=== PATIENT | male | born 1930 ===

== ENCOUNTER 2017-01-10 10:27 | Inpatient (IN) | payer MEDICARE ==
--- NOTE | 2017-01-10 10:37 | ED PDOC ---
Arrival/HPI - General Chief Complaint: Altered Mental Status Time Seen by Provider: 01/10/17 10:29 Historian: EMS EM Caveat: Dementia - History of Present Illness Narrative History of Present Illness (Text): 01/10/17 10:35 An 86 year old male whose past medical history includes, diabetes, hypertension , emphysema, and is a [facility] resident, presents to the emergency department brought in via EMS from [facility] for lethargy and fever. As per EMS the patient has a DNR order. Review of systems unavailable due to dementia. Time/Duration: Prior to Arrival Symptom Onset: Sudden Symptom Course: Unchanged Activities at Onset: Rest, Light Context: Other (Long Term) Past Medical History - Provider Review Nursing Documentation Reviewed: Yes - Infectious Disease Hx of Infectious Diseases: None - Tetanus Immunization Tetanus Immunization: Unknown - Cardiac Hx Cardiac Disorders: Yes Hx Hypertension: Yes - Pulmonary Hx Respiratory Disorders: Yes (USED TO SMOKE 3 PPD QUIT) Other/Comment: SOB - Neurological Hx Neurological Disorder: No - HEENT Hx HEENT Disorder: Yes Other/Comment: POOR VISION - Renal Hx Renal Disorder: No - Endocrine/Metabolic Hx Diabetes Mellitus Type 2: Yes (uncontrolled) - Hematological/Oncological Hx Blood Disorders: No - Integumentary Hx Dermatological Disorder: Yes Hx Psoriasis: Yes (EXTENSIVE-WHOLE BODY,LE AND UPPER EXT. SOME TO FOREHEAD.) - Musculoskeletal/Rheumatological Hx Musculoskeletal Disorders: Yes Hx Falls: Yes - Gastrointestinal Hx Gastrointestinal Disorders: No - Genitourinary/Gynecological Hx Genitourinary Disorders: Yes (URGENCY) Hx Incontinence: Yes - Psychiatric Hx Psychophysiologic Disorder: No Hx Substance Use: No Family/Social History - Physician Review Nursing Documentation Reviewed: Yes Family/Social History: No Known Family HX Smoking Status: Former Smoker Hx Alcohol Use: Yes (QUIT. USED TO DRINK 15 BEERS /WEEKEND QUIT) Hx Substance Use: No Allergies/Home Meds Allergies/Adverse Reactions: Allergies No Known Allergies Allergy (Verified 04/21/16 15:15) Home Medications: Home Meds Medication Instructions Recorded Confirmed Donepezil [Aricept] 10 mg PO HS 04/21/16 01/10/17 Acetaminophen [Pain Reliever] 650 mg PO Q4H PRN 01/10/17 01/10/17 Acetaminophen [Tylenol 325mg tab] 650 mg PO Q4H PRN 01/10/17 01/10/17 Albuterol Sulfate [Proair Hfa] 2 puff IH Q8H PRN 01/10/17 01/10/17 Albuterol/Ipratropium [Duoneb 3 3 ml IH Q6H PRN 01/10/17 01/10/17 MG/3 Ml-0.5 MG/3 Ml 3 Ml] Bisacodyl [Fast Relief Laxative] 10 mg RC PRN PRN 01/10/17 01/10/17 Cetirizine HCl [Zyrtec Allergy] 10 mg PO DAILY 01/10/17 01/10/17 Docusate Sodium [Baig' Stool 200 mg PO DAILY 01/10/17 01/10/17 Softener Laxative] Famotidine [Pepcid] 40 mg PO HS 01/10/17 01/10/17 Fluticasone/Vilanterol [Breo 1 puff IH DAILY 01/10/17 01/10/17 Ellipta 200-25 Mcg INH] Insulin Human Regular [Novolin R] 0 unit SC BID 01/10/17 01/10/17 Magnesium Hydroxide [Milk Of 30 ml PO DAILY PRN 01/10/17 01/10/17 Magnesia] Montelukast [Singulair] 10 mg PO DAILY 01/10/17 01/10/17 Thiamine Mononitrate [Optimum 100 mg PO DAILY 01/10/17 01/10/17 Vitamin B-1] acetaZOLAMIDE [Diamox] 250 mg PO BID 01/10/17 01/10/17 Physical Exam - Physical Exam Narrative Physical Exam (Text): 01/10/17 10:47 - Review of Systems limited due to dementia. Constitutional: (+) Fevers. absent: Fatigue, Weight Change Neurological: (+) Lethargic. absent: Focal Weakness - Physical exam Patient appears age appropriate. - Systems Exam Head: Present: Atraumatic, Normocephalic Pupils: Present: PERRL Extraocular Muscles: Present: EOMI Conjunctiva: Present: Normal Mouth: Present: Dry Mucous Membranes Neck: Present: Normal Range of Motion. No: MIDLINE TENDERNESS, Paraspinal Tenderness Respiratory/Chest: Present: Clear to Auscultation, Good Air Exchange. mild Respiratory Distress No: Accessory Muscle Use, Tachypnic Cardiovascular: Present: Tachycardic, Normal S1, S2, Peripheral Pulses Present. No: Murmurs Abdomen: Present: Normal Bowel Sounds, No: Tenderness, Peritoneal Signs, Rebound, Guarding, Distention Back: Present: Normal Inspection. No: Midline Tenderness, Paraspinal Tenderness Upper Extremity: Present: Normal Inspection. No: Cyanosis, Edema Lower Extremity: Present: erythematous rash, LLE Neurological: Present: Lethargic, responsive to verb and tactile stimuli. No focal neurological deficits. Lymphatic: Present: NI, NC Physical Exam Limitations: Other (Dementia) Vital Signs Reviewed: Yes Vital Signs Temp Pulse Resp BP Pulse Ox 01/10/17 12:51 98.9 F 114 H 22 135/92 H 99 01/10/17 12:14 98.5 F 01/10/17 11:28 121 H 18 135/81 99 01/10/17 10:38 100.4 F H 120 H 18 137/83 97 Temperature: Febrile Blood Pressure: Normal Pulse: Tachycardic Respiratory Rate: Normal Appearance: Positive for: Ill-Appearing Medical Decision Making ED Course and Treatment: 01/10/17 11:01 Impression: An 86 year old male brought in via EMS from [facility] for lethargy and fever. On exam, lethargic, dry mucous membranes, no focal neurological deficits , tachycardic, clear to auscultation, and responsive to verb and tactile stimuli. LE with erythema and cellulitic changes Differential Diagnosis included but are not limited to: Sepsis vs. UTI vs. PNA vs. cellulitis Plan: -- EKG -- Chest X-ray -- Labs -- Urine ad Blood Culture -- Urinalysis -- Tylenol, IV Fluids, Vancomycin, zosyn -- Reassess and disposition Prior Visits: Notes and results from previous visits were reviewed. Patient was last seen in the emergency department 04/2016 for lower extremity edema and shortness of breath. Patient was admitted for lower extremity edema, shortness of breath, cellulitis. Progress Notes: 01/10/17 10:40: Patient seen by Dr. Abdul in emergency department agrees with plan. 01/10/17 11:28 EKG: Ordered, reviewed, and independently interpreted the EKG. Rate : 115 BPM Rhythm :Atrial fibrillation Interpretation : No ST-segment elevations, normal axis, normal intervals. Interpreted by me. 01/10/17 12:26 Chest X-ray Report Date : 01/10/2017 11:55:26 Dictator : Nilesh Ivey MD IMPRESSION: No active disease. 01/10/17 13:19 Dictator : Nilesh Ivey MD Report Date : 01/10/2017 13:16:04 CT Abdomen and Pelvis without intravenous contrast IMPRESSION: No acute findings 01/10/17 14:[address] Castro, asked to admit to the MICU dw Dr. Mullins, [facility] will evaluate pt's [place] records have a POLST. [facility] pt would like to a natural . DNR. 01/10/17 15:02 accepted to the MICU by Dr. Mullins - Lab Interpretations Lab Results: 01/10/17 10:45 01/10/17 10:45 Lab Results 01/10/17 13:53: pO2 149 H, VBG pH 7.20 L, VBG pCO2 29.0 L, VBG HCO3 11.3 L, VBG Total CO2 12.2 L, VBG O2 Sat (Calc) 100.6 H, VBG Base Excess -15.3 L, VBG Potassium 4.0, Sodium 156.0 H, Chloride 110.0 H, Glucose 239 H, Lactate 4.1 H*, FiO2 21.0, Venous Blood Potassium 4.0 01/10/17 11:00: Urine Color Yellow, Urine Appearance Cloudy, Urine pH 8.0, Ur Specific Means 1.020, Urine Protein 100 H, Urine Glucose (UA) Negative, Urine Ketones Negative, Urine Blood Large H, Urine Nitrate Negative, Urine Bilirubin Negative, Urine Urobilinogen 0.2, Ur Leukocyte Esterase Large H, Urine RBC 0 - 2 , Urine WBC 1 - 3, Urine Bacteria Many 01/10/17 10:45: Sodium 147, Chloride 114 H, Potassium 3.2 L, Carbon Dioxide 13 L , Anion Gap 23 H, BUN 30 H, Creatinine 2.1 H, Est GFR ( Amer) 37, Est GFR (Non-Af Amer) 30, Random Glucose 253 H, Calcium 9.6, Phosphorus 2.4 L, Magnesium 1.9, Total Bilirubin 1.0, AST 60 H, ALT 21, Alkaline Phosphatase 101, Troponin I 0.06, NT-Pro-B Natriuret Pep 3760 H, Total Protein 7.7, Albumin 4.1, Globulin 3.7, Albumin/Globulin Ratio 1.1 01/10/17 10:45: pO2 152 H, VBG pH 7.20 L, VBG pCO2 28.0 L, VBG HCO3 10.9 L, VBG Total CO2 11.8 L, VBG O2 Sat (Calc) 100.3 H, VBG Base Excess -15.6 L, VBG Potassium 3.9, Sodium 159.0 H, Chloride 101.0, Glucose 268 H, Lactate 6.4 H*, FiO2 21.0, Venous Blood Potassium 3.9 01/10/17 10:45: PT 13.1 H, INR 1.21 H, APTT 35.7 H 01/10/17 10:45: WBC 53.5 H* D, RBC 5.01, Hgb 15.4, Hct 45.7, MCV 91.2, MCH 30.7 , MCHC 33.7, RDW 14.2, Plt Count 145, MPV 11.9 H, Neutrophils % (Manual) 92 H, Band Neutrophils % 5 H, Lymphocytes % (Manual) 0 L, Monocytes % (Manual) 0 L, Metamyelocytes % 3, Platelet Evaluation Normal I have reviewed the lab results: Yes - RAD Interpretation Radiology Orders: 01/10/17 10:41 CHEST PORTABLE [RAD] Stat 01/10/17 12:12 ABD & PELVIS W/O PO OR IV CONT [CT] Stat - EKG Interpretation Interpreted by ED Physician: Yes Type: 12 lead EKG - Medication Orders Current Medication Orders: Acetaminophen (Tylenol 325 Mg Supp) 975 mg VT ONCE PRN PRN Reason: Fever >100.4 F Last Admin: 01/10/17 11:14 Dose: 975 mg Re-Assess: [place] Pain/Vitals Document 01/10/17 12:14 EWO (Rec: 01/10/17 14:51 EWO [id number]) Vitals Temperature (97.6 F-99.6 F) 98.5 F Temperature Source Rectal Potassium Chloride (Potassium Chloride 20 Meq/100 Ml) 20 meq in 100 mls @ 50 mls/hr IVPB Q2H JARROD Stop: 01/10/17 16:14 Last Admin: 01/10/17 14:55 Dose: 50 mls/hr Metronidazole (Flagyl) 500 mg in 100 mls @ 100 mls/hr IVPB STAT STA PRN Reason: Protocol Stop: 01/10/17 15:19 Last Admin: 01/10/17 15:02 Dose: 100 mls/hr Discontinued Medications Aspirin (Aspirin Supp) 300 mg RC STAT STA Stop: 01/10/17 12:07 Last Admin: 01/10/17 12:39 Dose: 300 mg Re-Assess: [place] Pain/Vitals Document 01/10/17 13:39 BESSY (Rec: 01/10/17 14:58 BESSY [id number]) Pain Reassessment Is This A Pain ReAssessment? No Sodium Chloride 2,500 ml/ IV (SUPPLIES) 2,500 mls @ 4,898.82 mls/hr IV ONCE ONE PRN Reason: 60 ML/KG/HR Stop: 01/10/17 10:42 Last Admin: 01/10/17 11:15 Dose: 4,898.82 mls/hr Vancomycin HCl (Vancomycin 1gm) 1 gm in 250 mls @ 167 mls/hr IVPB STAT STA PRN Reason: Protocol Stop: 01/10/17 12:10 Last Admin: 01/10/17 11:45 Dose: 167 mls/hr Piperacillin Sod/Tazobactam Sod (Zosyn 4.5 Gm In Ns 100ml) 4.5 gm in 100 mls @ 200 mls/hr IVPB STAT STA PRN Reason: Protocol Stop: 01/10/17 11:10 Last Admin: 01/10/17 11:14 Dose: 200 mls/hr - Scribe Statement The provider has reviewed the documentation as recorded by the Tiibbrandi Davis Provider Scribe Attestation: All medical record entries made by the Scribe were at my direction and personally dictated by me. I have reviewed the chart and agree that the record accurately reflects my personal performance of the history, physical exam, medical decision making, and the department course for this patient. I have also personally directed, reviewed, and agree with the discharge instructions and disposition. Disposition/Present on Arrival - Present on Arrival Any Indicators Present on Arrival: No History of DVT/PE: No History of Uncontrolled Diabetes: Yes Urinary Catheter: No History of Decub. Ulcer: No History Surgical Site Infection Following: None - Disposition Have Diagnosis and Disposition been Completed?: Yes Diagnosis: Sepsis Disposition: HOSPITALIZED Disposition Time: 15:04 Patient Plan: Admission Patient Problems: Current Active Problems Problem Status Onset Sepsis Acute Condition: FAIR Discharge Instructions (ExitCare): Sepsis (ED) Forms: Criptext (Syriac)
[2017-01-10] MEDS ORDERED: Vancomycin 1gm in NS 250ml 1 GM/250 ML BAG IVPB STA (10:41)
[2017-01-10] MEDS ORDERED: Piperacill/Tazo 4.5gm in NS 4.5 GM/100 ML BAG IVPB STA (10:41)
[2017-01-10 11:08] LABS: VENOUS BLOOD GAS BASE EXCESS -15.6 mmol/L (0.0-2.0); VENOUS BLOOD GAS PO2 152 mm/Hg (30-55)
[2017-01-10 11:10] LABS: HEMOGLOBIN 15.4 gm/dL (14.0-18.0); MEAN CELL VOLUME 91.2 fL (80.0-105.0); MEAN CORPUSCULAR HEMOGLOBIN 30.7 pg (25.0-35.0); MEAN CORPUSCULAR HGB CONC 33.7 g/dl (31.0-37.0); MEAN PLATELET VOLUME 11.9 fl (7.0-11.0); PLATELET COUNT 145 10^3/uL (120.0-450.0); RBC 5.01 10^6/uL (3.5-6.1); RED CELL DISTRIBUTION WIDTH 14.2 % (11.5-14.5)
[2017-01-10 11:16] LABS: URINE APPEARANCE CLOUDY (CLEAR); URINE BILIRUBIN NEGATIVE (NEGATIVE); URINE BLOOD LARGE (NEGATIVE); URINE COLOR YELLOW (YELLOW); URINE GLUCOSE (UA) NEGATIVE (NEGATIVE); URINE LEUKOCYTE ESTERASE LARGE Leu/uL (NEGATIVE); URINE NITRATE NEGATIVE (NEGATIVE); URINE PROTEIN 100 mg/dL (<30 mg/dL); URINE UROBILINOGEN 0.2 E.U./dL (<1 E.U./dL)
[2017-01-10 11:16] LABS: WHITE BLOOD COUNT 53.5 10^3/ul (4.5-11.0)
[2017-01-10 11:17] LABS: INR 1.21 (0.93-1.08); PARTIAL THROMBOPLASTIN TIME 35.7 Seconds (23.7-30.8); PROTHROMBIN TIME 13.1 Seconds (9.9-11.8)
--- NOTE | 2017-01-10 11:31 | PCM.SEPTIC ---
Sepsis Progress Note - Reassessment Type Date of Evaluation: 01/10/17 Time of Evaluation: 11:31 Reassessment Type: Non-invasive reassessment - Non Invasive Reassessment Were the most recent vital sign reviewed: Yes Vital Sign (Latest): Temp Pulse Resp BP Pulse Ox 100.4 F H 120 H 18 137/83 97 01/10/17 10:38 01/10/17 10:38 01/10/17 10:38 01/10/17 10:38 01/10/17 10:38 Cardiovascular: Yes: Tachycardia. No: Murmur Respiratory: Yes: Normal Breath Sounds, Accessory Muscle Use, Respiratory Distress. No: Wheezing Capillary Refill: Normal (Less than 2 sec) Pulses: Normal Radial, Normal Dorsalis Pedis, Decreased Posterior Tibialis Skin: Warm, Diaphoretic, Rash (anterior chest ), Other (dry red plaque formation lower legs)
[2017-01-10 11:39] LABS: URINE BACTERIA MANY (NEG); URINE RBC 0 - 2 /hpf (0-2)
[2017-01-10 11:43] LABS: BAND 5 % (0-2); METAMYELOCYTE 3 %; NEUTROPHIL 92 % (50.0-70.0); PLATELET ESTIMATE NORMAL (NORMAL)
[2017-01-10 11:44] LABS: ALB/GLOB RATIO 1.1 (1.1-1.8); ALBUMIN 4.1 g/dL (3.0-4.8); CALCIUM 9.6 mg/dL (8.4-10.5); LYMPHOCYTE 0 % (22.0-35.0); MAGNESIUM 1.9 mg/dL (1.7-2.2); MONOCYTE 0 % (1.0-6.0)
[2017-01-10 11:45] LABS: TROPONIN I 0.06 ng/mL
--- NOTE | 2017-01-10 11:57 | RAD ---
HISTORY: Sepsis Patient COMPARISON: 04/21/2016 FINDINGS: LUNGS: No active pulmonary disease. PLEURA: No significant pleural effusion identified, no pneumothorax apparent. CARDIOVASCULAR: Normal. OSSEOUS STRUCTURES: No significant abnormalities. VISUALIZED UPPER ABDOMEN: Normal. OTHER FINDINGS: None. IMPRESSION: No active disease.
--- NOTE | 2017-01-10 13:17 | CT ---
PROCEDURE: CT Abdomen and Pelvis without intravenous contrast HISTORY: SEPSIS COMPARISON: None. TECHNIQUE: Without contrast.. Contrast Dose: Radiation dose: Total exam DLP = 854 mGy-cm. This CT exam was performed using one or more of the following dose reduction techniques: Automated exposure control, adjustment of the mA and/or kV according to patient size, and/or use of iterative reconstruction technique. FINDINGS: LOWER THORAX: There is a pleural calcification on the left diaphragmatic surface. LIVER: Unremarkable. No gross lesion or ductal dilatation. GALLBLADDER AND BILE DUCTS: There is a single small stone in the gallbladder. There is no inflammation PANCREAS: Unremarkable. No gross lesion or ductal dilatation. SPLEEN: Unremarkable. ADRENALS: Unremarkable. No mass. KIDNEYS AND URETERS: Unremarkable. No hydronephrosis. No solid mass. VASCULATURE: Unremarkable. No aortic aneurysm. BOWEL: Unremarkable. No obstruction. No gross mural thickening. There is a moderate amount of stool in the rectum APPENDIX: Unremarkable. Normal appendix. PERITONEUM: Unremarkable. No free fluid. No free air. LYMPH NODES: Unremarkable. No enlarged lymph nodes. BLADDER: The bladder is decompressed around a Looney catheter. REPRODUCTIVE: Unremarkable. BONES: Multilevel disc degeneration. There is a compression deformity of the inferior endplate of L1. This is probably chronic OTHER FINDINGS: None. IMPRESSION: No acute findings
[2017-01-10 13:58] LABS: VENOUS BLOOD GAS BASE EXCESS -15.3 mmol/L (0.0-2.0); VENOUS BLOOD GAS PO2 149 mm/Hg (30-55)
[2017-01-10] MEDS ORDERED: metroNIDAZOLE IV 500 mg/100 ml 500 MG/100 ML BAG IVPB STA (14:20)
[2017-01-10] MEDS ORDERED: Vancomycin 1gm in NS 250ml 1 GM/250 ML BAG IVPB SCH (16:45)
[2017-01-10] MEDS: Sodium Chloride 0.9% 1,000 ML IV SCH (17:25)
[2017-01-10] MEDS ORDERED: Piperacill/Tazo 4.5gm in NS 4.5 GM/100 ML BAG IVPB SCH (18:00)
[2017-01-10] MEDS ORDERED: Piperacillin/Tazobact 3.375 gm 100 ML IVPB SCH (18:00)
[2017-01-10] MEDS ORDERED: Sodium Chloride 0.9% 2,000 ML IV STA (18:06)
[2017-01-10 18:58] VITALS: BMI 29.9
[2017-01-10] MEDS ORDERED: Pneumococcal 23-Valent Vaccine IM ONE (18:58)
[2017-01-10 19:03] LABS: MEAN CELL VOLUME 92.2 fL (80.0-105.0); MEAN CORPUSCULAR HEMOGLOBIN 30.8 pg (25.0-35.0); MEAN CORPUSCULAR HGB CONC 33.4 g/dl (31.0-37.0); MEAN PLATELET VOLUME 10.8 fl (7.0-11.0); RBC 4.87 10^6/uL (3.5-6.1); RED CELL DISTRIBUTION WIDTH 14.5 % (11.5-14.5)
[2017-01-10 19:05] LABS: WHITE BLOOD COUNT 38.5 10^3/ul (4.5-11.0)
--- NOTE | 2017-01-10 19:15 | CP.PCM.CON ---
Addendum entered and electronically signed by ARNULFO MOREIRA DO 01/10/17 21:13 : Patient's chart includes POLST stating DNR status, signed by power of trust and estates attorney, Grace Albright, but did not include any notation as to intubation and ventilation status, and was not signed by a physician. The advanced directive where she is listed as POA is also found in the chart. I called and spoke to her personally, to verify the resuscitation status, and she verbalized they do not desire any heroic life saving measures, including, but not limited to, chest compressions, intubations, invasive procedures, or large invasive IV access lines. Original Note: <ARNULFO MOREIRA - Last Filed: 01/10/17 19:03> History of Present Illness - History of Present Illness History of Present Illness: Arnulfo Moreira DO PGY1 - ICU Consult Note Patient is an 86 yo M seen and evaluated at bedside in the ER with a PMH of psoriasis, DM, HTN, emphysema, and dementia. He was brought to the ER by EMS from his intermediate for fever and lethargy. He appears lethargic and confused. ROS is limited by his mental status. Review of Systems - Review of Systems Systems not reviewed;Unavailable: Altered Mental Status Past Patient History - Infectious Disease Hx of Infectious Diseases: None - Tetanus Immunizations Tetanus Immunization: Unknown - Past Social History Smoking Status: Former Smoker - CARDIAC Hx Cardiac Disorders: Yes Hx Hypertension: Yes - PULMONARY Hx Respiratory Disorders: Yes (USED TO SMOKE 3 PPD QUIT) Other/Comment: SOB - NEUROLOGICAL Hx Neurological Disorder: Yes Hx Dementia: Yes (MILD) - HEENT Hx HEENT Problems: Yes ([place]) Other/Comment: POOR VISION - RENAL Hx Chronic Kidney Disease: No - ENDOCRINE/METABOLIC Hx Diabetes Mellitus Type 2: Yes (uncontrolled) - HEMATOLOGICAL/ONCOLOGICAL Hx Blood Disorders: No - INTEGUMENTARY Hx Dermatological Problems: Yes Hx Psoriasis: Yes (EXTENSIVE-WHOLE BODY,LE AND UPPER EXT. SOME TO FOREHEAD.) - MUSCULOSKELETAL/RHEUMATOLOGICAL Hx Musculoskeletal Disorders: Yes Hx Falls: Yes Hx Unsteady Gait: Yes (WALKER,AMBULATES WITH ASSIST) - GASTROINTESTINAL Hx Gastrointestinal Disorders: No - GENITOURINARY/GYNECOLOGICAL Hx Genitourinary Disorders: Yes (URGENCY) Hx Incontinence: Yes - PSYCHIATRIC Hx Psychophysiologic Disorder: No Hx Substance Use: No - SURGICAL HISTORY Hx Surgeries: No Meds Allergies/Adverse Reactions: Allergies Allergy/AdvReac Type Severity Reaction Status Date / Time No Known Allergies Allergy Verified 01/10/17 16:34 - Medications Medications: Current Medications Acetaminophen (Tylenol 325 Mg Supp) 975 mg KS ONCE PRN PRN Reason: Fever >100.4 F Stop: 01/10/17 23:59 Last Admin: 01/10/17 11:14 Dose: 975 mg Acetaminophen (Tylenol 325mg Tab) 650 mg PO Q4 PRN PRN Reason: Fever >100.4 F Albuterol/Ipratropium (Duoneb 3 Mg/0.5 Mg (3 Ml) Ud) 3 ml IH [id number] JARROD Metronidazole (Flagyl) 500 mg in 100 mls @ 100 mls/hr IVPB Q8 JARROD PRN Reason: Protocol Sodium Chloride (Sodium Chloride 0.9%) 1,000 mls @ 100 mls/hr IV .Q10H [facility] Last Admin: 01/10/17 17:25 Dose: 100 mls/hr Vancomycin HCl (Vancomycin 1gm) 1 gm in 250 mls @ 167 mls/hr IVPB Q12H JARROD PRN Reason: Protocol Last Admin: 01/10/17 17:25 Dose: 167 mls/hr Piperacillin Sod/Tazobactam Sod (Zosyn 3.375 In Ns 100ml) 100 mls @ 200 mls/hr IVPB Q6 JARROD Stop: 01/11/17 00:30 Last Admin: 01/10/17 17:24 Dose: 200 mls/hr Sodium Chloride (Sodium Chloride 0.9%) 2,000 mls @ 999 mls/hr IV .Q2H1M STA Stop: 01/10/17 20:06 Insulin Human Regular (Humulin R Med) 0 units SC ACHS JARROD PRN Reason: Protocol Pneumococcal Polyvalent Vaccine (Pneumovax 23 Vaccine) 0.5 ml IM .ONCE ONE Stop: 01/10/17 18:59 Physical Exam - Constitutional Appears: Toxic, No Acute Distress, Confused, Chronically Ill - Head Exam Head Exam: ATRAUMATIC, NORMOCEPHALIC - Eye Exam Eye Exam: EOMI, Normal appearance - ENT Exam Additional comments: Oropharynx erythematous - Neck Exam Neck exam: Negative for: Lymphadenopathy, Meningismus - Respiratory Exam Respiratory Exam: Rhonchi Additional comments: tachypnic - Cardiovascular Exam Cardiovascular Exam: Irregular Rhythm, +S1, +S2 - GI/Abdominal Exam GI & Abdominal Exam: Normal Bowel Sounds, Soft. absent: Tenderness - Extremities Exam Extremities exam: Positive for: normal inspection. Negative for: calf tenderness, pedal edema - Back Exam Back exam: absent: CVA tenderness (L), CVA tenderness (R) - Neurological Exam Additional comments: Lethargic, unable to assess orientation - Skin Additional comments: Multiple psoriatic plaques diffusely on chest, neck, b/l UE, b/l LE Left leg with large erythematous indurated plaque on left thigh and buttock, with 2cm bulla with no purulence or bleeding. Tender Results - Vital Signs Recent Vital Signs: Last Vital Signs Temp 99 F 01/10/17 18:24 Pulse 120 H 01/10/17 18:24 Resp 18 01/10/17 18:24 BP 137/73 01/10/17 18:24 Pulse Ox 99 01/10/17 14:00 - Labs Result Diagrams: 01/10/17 10:45 01/10/17 10:45 Assessment & Plan - Assessment and Plan (Free Text) Assessment: 86 yo cook islander speaking M with PMH of Dm, HTN, emphysema, psoriasis, and dementia , admitted to ICU for severe sepsis 2/2 UTI vs cellulitis vs colitis. Neuro: - Patient was lethargic and barely responsive on initial exam, after receiving 2.5L fluid bolus and initial doses of antibiotics, he is much more awake and alert, responding appropriately to questions and moving all extremities normally - Continue to monitor mental status with continuing treatment Cardio: - EKG shows NSR, borderline tachycardia - H/o HTN, HLD, holding home antihypertensives due to state of sepsis - Received 2.5L fluid bolus in ER, currently on NS@100 - Normotensive - PRN hydralazine for SBP>180, DBP>110 - Maintain mean BP>60 Pulm: - Patient wheezing on exam, with history of emphysema - Duoneb Q6 - Maintain O2% >90% - Consulted pulm (Dr. Michelle) GI: - Tolerating PO, will monitor blood glucose and adjust diet - Renal diet - Ppx: Protonix Renal: - Creatinine elevated, but likely 2/2 hydration status, start IVF and recheck in AM - Strict I & O - Looney catheter in place ID: - Sepsis 2/2 UTI vs Cellulitis vs Colitis - Afebrile. WBC on admission 55,000. Improved to 38,500 on repeat CBC after fluids and abx - Received one dose of Zosyn and Vanco in ED - Urinalysis shows likely UTI - Physical exam shows likely cellulitis - CT abd/pelv read as "no acute findings" but shows some mildy dilated loops of bowel, possibly 2/2 early colitis - Pending BCx, UCx, stool for C. diff - Start Zosyn, Vanco, and Flagyl - Consulted ID (Tez) Endo: - H/o DM, holding oral hypoglycemics - Patient is acidotic with an anion gap, but more likely due to sepsis than DKA. No ketonuria or glucosuria. - Q4 accuchecks - Sliding Scale Insulin MED - Maintain euglycemia Ppx- protonix and SCD Patient see and discussed with attending <Harpreet ST,Elsisa Dunalp - Last Filed: 01/11/17 07:42> Meds - Medications Medications: Current Medications Acetaminophen (Tylenol 325mg Tab) 650 mg PO Q4 PRN PRN Reason: Fever >100.4 F Albuterol/Ipratropium (Duoneb 3 Mg/0.5 Mg (3 Ml) Ud) 3 ml IH [id number] [facility] Last Admin: 01/11/17 07:15 Dose: Not Given Hydralazine HCl (Apresoline) 10 mg IVP Q6 PRN PRN Reason: SBP>180, DBP>110 Metronidazole (Flagyl) 500 mg in 100 mls @ 100 mls/hr IVPB Q8 JARROD PRN Reason: Protocol Last Admin: 01/11/17 06:20 Dose: 100 mls/hr Meropenem 1g/NS 100mL IVPB (Meropenem 1g/Ns 100ml Ivpb) 1 gm in 100 mls @ 100 mls/hr IVPB Q12 JARROD PRN Reason: Protocol Stop: 01/17/17 22:31 Last Admin: 01/10/17 23:00 Dose: 100 mls/hr Sodium Chloride (Sodium Chloride 0.45%) 1,000 mls @ 100 mls/hr IV .Q10H [facility] Insulin Human Regular (Humulin R Med) 0 units SC ACHS JARROD PRN Reason: Protocol Last Admin: 01/10/17 22:09 Dose: Not Given Pantoprazole Sodium (Protonix Inj) 40 mg IVP Q12 JARROD Last Admin: 01/10/17 22:08 Dose: 40 mg Results - Vital Signs Recent Vital Signs: Last Vital Signs Temp 98.2 F 01/11/17 04:10 Pulse 93 H 01/11/17 06:30 Resp 20 01/11/17 06:30 BP 159/109 H 01/11/17 06:00 Pulse Ox 96 01/11/17 06:30 - Labs Result Diagrams: 01/11/17 05:15 01/11/17 05:15 Labs: Laboratory Results - last 24 hr 01/10/17 01/10/17 01/10/17 19:00 19:00 22:07 WBC 38.5 H* D RBC 4.87 Hgb 15.0 Hct 44.9 MCV 92.2 MCH 30.8 MCHC 33.4 RDW 14.5 Plt Count 112 L MPV 10.8 Gran % Lymph % (Auto) [place] % (Auto) Eos % (Auto) Baso % (Auto) Gran # Lymph # [place] # Eos # Baso # Neutrophils % (Manual) Band Neutrophils % Lymphocytes % (Manual) Monocytes % (Manual) Metamyelocytes % Giant Platelets Sodium Potassium Chloride Carbon Dioxide Anion Gap BUN Creatinine Est GFR ( Amer) Est GFR (Non-Af Amer) POC Glucose (mg/dL) 197 H Random Glucose Lactic Acid 2.9 H Calcium 01/11/17 01/11/17 01/11/17 05:15 05:15 05:15 WBC 27.8 H* D RBC 4.72 Hgb 14.4 Hct 43.1 MCV 91.3 MCH 30.5 MCHC 33.4 RDW 14.7 H Plt Count 102 L MPV 11.5 H Gran % [employer] Investigator Lymph % (Auto) [employer] Investigator [place] % (Auto) [employer]age [employer] Investigator Eos % (Auto) [employer] Investigator Baso % (Auto) [employer] Investigator Gran # [employer] Investigator Lymph # [employer] Investigator [place] # [employer] Investigator Eos # [employer] Investigator Baso # [employer] Investigator Neutrophils % (Manual) 87 H Band Neutrophils % 7 H Lymphocytes % (Manual) 2 L Monocytes % (Manual) 2 Metamyelocytes % 2 Giant Platelets Present Sodium 150 H Potassium 4.0 Chloride 121 H Carbon Dioxide 19 L Anion Gap 14 BUN 31 H Creatinine 1.5 H Est GFR ( Amer) 54 Est GFR (Non-Af Amer) 44 POC Glucose (mg/dL) Random Glucose 120 H Lactic Acid 1.6 Calcium 8.8 Attending/Attestation - Attestation I have personally seen and examined this patient.: Yes I have fully participated in the care of the patient.: Yes I have reviewed all pertinent clinical information: Yes Notes (Text): 01/11/17 07:40 86 y/o M w/ SEPSIS and AMS Dementia at baseline but noted to be lethargic and uncomfortable. Elevated WBC 55K without identifiable source. [place] cx sent , IV Fluids x [address] abd pelvis to be done to check for Colitis ( c. DIff) Urine analysis positive, pending cx results. Broad spectrum abx given and empiric treatment for C . Diff. Will watch overnight. DNR/DNI no heroic measures. dvt P cc time 55 min
[2017-01-10] MEDS: Albuterol-Ipratrop 3 mg / 0.5 (3 ml) UD IH SCH (20:00)
[2017-01-10] MEDS: Albuterol-Ipratrop 3 mg / 0.5 (3 ml) UD IH STA (20:02)
[2017-01-10] MEDS: metroNIDAZOLE IV 500 mg/100 ml 500 MG/100 ML BAG IVPB SCH (21:55)
[2017-01-10] MEDS: Insulin Reg-MEDIUM-Coverage SC SCH (22:09)
[2017-01-10] MEDS: Meropenem 1g/NS 100mL IVPB 1 GM/100 ML PIGGYBACK IVPB SCH (23:00)
--- NOTE | 2017-01-10 23:19 | HP ---
CHIEF COMPLAINT: Fever, altered mental status and tachycardia. HISTORY OF PRESENT ILLNESS: The patient is an 86-year-old male. The patient is my private patient, resident of [facility], history of diabetes mellitus, hypertension, emphysema, COPD, was sick, [facility] called me today early in the morning that the patient has fever, has tachycardia, then I told them to call EMS and transfer the patient to [facility] Emergency Room. The patient was seen by me in [facility] Emergency Room with Dr. Vasquez , ER physician. The patient has altered mental status, is not able to give review of systems, but looks like sick, lethargic, tachycardic and sweaty. According to EMS, the patient is DNR. No nausea, vomiting or diarrhea. No hematuria and no hematochezia. No swelling of the leg. No chest pain and no palpitation. PAST MEDICAL HISTORY: Hypertension; history of heavy smoking, used to smoke 3 packs per day; poor vision; diabetes mellitus, uncontrolled; extensive lesions on the body with psoriasis and history of fall. FAMILY HISTORY: Father and mother noncontributory. HABITS: Former smoking, quit, used to be heavy smoker. Alcohol, quit, used to be heavy drinker, 15 beers per weekend. Substance abuse, no. ALLERGIES: THE PATIENT IS NOT ALLERGIC WITH ANY MEDICATION. HOME MEDICATIONS: Aricept, Tylenol, ProAir, bisacodyl, Zestril, Pepcid, inhalers, insulin, Singulair, thiamine and Diamox. PHYSICAL EXAMINATION GENERAL: The patient was seen and examined on the bedside in the ER. VITAL SIGNS: Temperature 98.9, T-max is 100.4; heart rate 120; respiratory rate 18 and blood pressure 137/83. HEENT: Head is normocephalic and atraumatic. Eyes, PERRLA. Extraocular muscles intact. Conjunctivae clear. Nose patent. Mucous membranes moist. NECK: Supple. No carotid bruits, no thyromegaly. CHEST: Bilaterally symmetrical. HEART: S1 and S2 positive. LUNGS: Positive wheezing bilaterally. ABDOMEN: Soft. Bowel sounds present. No organomegaly. EXTREMITIES: No edema. No cyanosis. NEUROLOGIC: The patient is lethargic, responsive to verbal and tactile stimuli. No focal neurological deficit. LABORATORY DATA: White blood cell 53.5, hemoglobin 15.4, hematocrit 45.7 and platelets 145. Sodium 147, potassium 3.2, BUN 30, creatinine 2.1 and glucose 253. ASSESSMENT AND PLAN: The patient is an 86-year-old male with leukocytosis, hypokalemia, hypernatremia, hyperglycemia, looks dehydrated, septic and tachycardia. Readmitted the patient in the unit, started on IV fluids, Flagyl, aspirin, NS, vancomycin and Zosyn. The patient looks like septic, ID consult called, history of chronic obstructive pulmonary disease, asthma, emphysema, pulmonary consult called, chest x-ray done. CAT scan of the abdomen and pelvis done. CAT scan has no acute findings. We will follow up. Mehreen Castro MD MTDKelechi
[2017-01-11] MEDS: Albuterol-Ipratrop 3 mg / 0.5 (3 ml) UD IH SCH ×4 (02:34→20:00)
[2017-01-11 05:45] LABS: HEMOGLOBIN 14.4 gm/dL (14.0-18.0); MEAN CELL VOLUME 91.3 fL (80.0-105.0); MEAN CORPUSCULAR HEMOGLOBIN 30.5 pg (25.0-35.0); MEAN CORPUSCULAR HGB CONC 33.4 g/dl (31.0-37.0); MEAN PLATELET VOLUME 11.5 fl (7.0-11.0); PLATELET COUNT 102 10^3/uL (120.0-450.0); RBC 4.72 10^6/uL (3.5-6.1); RED CELL DISTRIBUTION WIDTH 14.7 % (11.5-14.5)
[2017-01-11 05:52] LABS: CALCIUM 8.8 mg/dL (8.4-10.5); WHITE BLOOD COUNT 27.8 10^3/ul (4.5-11.0)
[2017-01-11] MEDS: metroNIDAZOLE IV 500 mg/100 ml 500 MG/100 ML BAG IVPB SCH ×3 (06:20→22:18)
[2017-01-11] MEDS: Sodium Chloride 0.9% 1,000 ML IV SCH (06:25)
[2017-01-11 06:48] LABS: BAND 7 % (0-2); LYMPHOCYTE 2 % (22.0-35.0); MONOCYTE 2 % (1.0-6.0)
[2017-01-11 06:49] LABS: GIANT PLATELETS PRESENT; METAMYELOCYTE 2 %
[2017-01-11 06:51] LABS: NEUTROPHIL 87 % (50.0-70.0)
[2017-01-11] MEDS: Insulin Reg-MEDIUM-Coverage SC SCH ×4 (08:05→22:10)
[2017-01-11] MEDS: Sodium Chloride 0.45% 1,000 ML IV SCH ×3 (08:10→20:00)
[2017-01-11] MEDS ORDERED: Metoprolol 1 mg/ml Inj IVP PRN ×2 (08:44→11:45)
[2017-01-11] MEDS: Albuterol-Ipratrop 3 mg / 0.5 (3 ml) UD IH STA (09:05)
--- NOTE | 2017-01-11 09:32 | CARD ---
APPROVED REPORT EKG Measurement Heart [id number] <Conclusion> RSR PRWP NSSTW changes LAD Electrical artifact
--- NOTE | 2017-01-11 09:57 | CP.PCM.CON ---
History of Present Illness - History of Present Illness History of Present Illness: 86 year olld male with PMH of DM, HTN, emphysema, dementia and Psoriasis was brought in from the senior living because of fever and lethargy. The patient was also noted to have tachypnea in the senior living. There was no note of loss of consciousness, no vomiting, no diarrhea, no trauma to the head, no convulsions. Septic work up was done in the ED, and the blood cx are now showing gram negative bacilli. Infectious diseases consult is requested to further evaluate and manage. Currently the patient is on BiPAP, arousable by verbal and tactile stimuli and answers some questions but still is lethargic. Full review of systems is difficult to obtain due to the lethargy, but the patient states he has no headache, no abdominal pain, no chest pain. Review of Systems - Review of Systems All systems: reviewed and no additional remarkable complaints except (as per HPI ) Past Patient History - Infectious Disease Hx of Infectious Diseases: None - Tetanus Immunizations Tetanus Immunization: Unknown - Past Social History Smoking Status: Former Smoker - CARDIAC Hx Cardiac Disorders: Yes Hx Hypertension: Yes - PULMONARY Hx Respiratory Disorders: Yes (USED TO SMOKE 3 PPD QUIT) Other/Comment: SOB - NEUROLOGICAL Hx Neurological Disorder: Yes Hx Dementia: Yes (MILD) - HEENT Hx HEENT Problems: Yes ([facility] [employer]) Other/Comment: POOR VISION - RENAL Hx Chronic Kidney Disease: No - ENDOCRINE/METABOLIC Hx Diabetes Mellitus Type 2: Yes (uncontrolled) - HEMATOLOGICAL/ONCOLOGICAL Hx Blood Disorders: No - INTEGUMENTARY Hx Dermatological Problems: Yes Hx Psoriasis: Yes (EXTENSIVE-WHOLE BODY,LE AND UPPER EXT. SOME TO FOREHEAD.) - MUSCULOSKELETAL/RHEUMATOLOGICAL Hx Musculoskeletal Disorders: Yes Hx Falls: Yes Hx Unsteady Gait: Yes ([facility]ALK[facility],AMBULATES WITH ASSIST) - GASTROINTESTINAL Hx Gastrointestinal Disorders: No - GENITOURINARY/GYNECOLOGICAL Hx Genitourinary Disorders: Yes (URGENCY) Hx Incontinence: Yes - PSYCHIATRIC Hx Psychophysiologic Disorder: No Hx Substance Use: No - SURGICAL HISTORY Hx Surgeries: No Meds Allergies/Adverse Reactions: Allergies Allergy/AdvReac Type Severity Reaction Status Date / Time No Known Allergies Allergy Verified 01/10/17 16:34 - Medications Medications: Current Medications Acetaminophen (Tylenol 325 Mg Supp) 975 mg UT ONCE PRN PRN Reason: Fever >100.4 F Stop: 01/10/17 23:59 Last Admin: 01/10/17 11:14 Dose: 975 mg Acetaminophen (Tylenol 325mg Tab) 650 mg PO Q4 PRN PRN Reason: Fever >100.4 F Albuterol/Ipratropium (Duoneb 3 Mg/0.5 Mg (3 Ml) Ud) 3 ml IH [id number] [facility] Last Admin: 01/10/17 20:00 Dose: Not Given Hydralazine HCl (Apresoline) 10 mg IVP Q6 PRN PRN Reason: SBP>180, DBP>110 Metronidazole (Flagyl) 500 mg in 100 mls @ 100 mls/hr IVPB Q8 JARROD PRN Reason: Protocol Last Admin: 01/10/17 21:55 Dose: 100 mls/hr Sodium Chloride (Sodium Chloride 0.9%) 1,000 mls @ 100 mls/hr IV .Q10H [facility] Last Admin: 01/10/17 17:25 Dose: 100 mls/hr Vancomycin HCl (Vancomycin 1gm) 1 gm in 250 mls @ 167 mls/hr IVPB Q12H JARROD PRN Reason: Protocol Last Admin: 01/10/17 17:25 Dose: 167 mls/hr Piperacillin Sod/Tazobactam Sod (Zosyn 3.375 In Ns 100ml) 100 mls @ 200 mls/hr IVPB Q6 [facility] Stop: 01/11/17 00:30 Last Admin: 01/10/17 17:24 Dose: 200 mls/hr Insulin Human Regular (Humulin R Med) 0 units SC ACHS JARROD PRN Reason: Protocol Last Admin: 01/10/17 22:09 Dose: Not Given Pantoprazole Sodium (Protonix Inj) 40 mg IVP Q12 [facility] Last Admin: 01/10/17 22:08 Dose: 40 mg Physical Exam - Constitutional Appears: Other (lethargic, on a BiPAP) - Head Exam Head Exam: NORMAL INSPECTION - Neck Exam Neck exam: Negative for: Meningismus - Respiratory Exam Respiratory Exam: Decreased Breath Sounds - Cardiovascular Exam Cardiovascular Exam: +S1, +S2 - GI/Abdominal Exam GI & Abdominal Exam: Soft. absent: Tenderness Results - Vital Signs Recent Vital Signs: Last Vital Signs Temp 99 F 01/10/17 18:24 Pulse 120 H 01/10/17 18:24 Resp 18 01/10/17 18:24 BP 137/73 01/10/17 18:24 Pulse Ox 99 01/10/17 14:00 - Labs Result Diagrams: 01/11/17 05:15 01/11/17 05:15 Labs: Laboratory Results - last 24 hr 01/10/17 01/10/17 01/10/17 19:00 19:00 22:07 WBC 38.5 H* D RBC 4.87 Hgb 15.0 Hct 44.9 MCV 92.2 MCH 30.8 MCHC 33.4 RDW 14.5 Plt Count 112 L MPV 10.8 POC Glucose (mg/dL) 197 H Lactic Acid 2.9 H Assessment & Plan - Assessment and Plan (Free Text) Plan: Assessment Severe sepsis with acute renal failure and acute encephalopathy due to gram negative bacilli, source to be determined, R/O UTI history of right lower extremity cellulitis DM Psoriasis HTN emphysema dementia Plan Started patient on Merrem and the patient was given a dose of IV vancomycin pending identification and sensitivities of the gram negative bacilli in the blood; follow up urine cx; will check PSA levels; CT scan of the abdomen and pelvis did not show acute pathology will monitor clinically - patient is in critical condition
--- NOTE | 2017-01-11 11:00 | CP.PCM.PN ---
<ARNULFO MOREIRA - Last Filed: 01/11/17 10:57> Subjective - Date & Time of Evaluation Date of Evaluation: 01/11/17 Time of Evaluation: 07:30 - Subjective Subjective: Arnulfo Moreira DO PGY1 - ICU Progress Note Patient seen and exmamined at [facility]. Nurse reports no acute events overnight. He was admitted yesterday for sepsis with AMS. Spoke to family for further history. Spoke to power of family law attorney on the phone to confirm resuscitation status. Today, on exam, was found to be shivering, tachycardic, and hypertensive , and wheezing and in respiratory distress. Was immediately started on BIPAP ( patient is DNI), and after no improvement given 5mg lopressor IVP. He subsequently stabilized and is now resting comofortably on BIPAP. (Exam below is after stabilization). Objective - Vital Signs/Intake and Output Vital Signs (last 24 hours): Temp Pulse Resp BP Pulse Ox 98.2 F 106 H 20 189/120 H 96 01/11/17 04:10 01/11/17 09:00 01/11/17 06:30 01/11/17 08:54 01/11/17 06:30 Intake and Output: 01/11/17 01/11/17 06:59 18:59 Intake Total 1500 Output Total 1500 Balance 0 - Medications Medications: Current Medications Acetaminophen (Tylenol 325mg Tab) 650 mg PO Q4 PRN PRN Reason: Fever >100.4 F Albuterol/Ipratropium (Duoneb 3 Mg/0.5 Mg (3 Ml) Ud) 3 ml IH [id number] [facility] Last Admin: 01/11/17 07:15 Dose: Not Given Hydralazine HCl (Apresoline) 10 mg IVP Q6 PRN PRN Reason: SBP>180, DBP>110 Metronidazole (Flagyl) 500 mg in 100 mls @ 100 mls/hr IVPB Q8 JARROD PRN Reason: Protocol Last Admin: 01/11/17 06:20 Dose: 100 mls/hr Meropenem 1g/NS 100mL IVPB (Meropenem 1g/Ns 100ml Ivpb) 1 gm in 100 mls @ 100 mls/hr IVPB Q12 JARROD PRN Reason: Protocol Stop: 01/17/17 22:31 Last Admin: 01/10/17 23:00 Dose: 100 mls/hr Sodium Chloride (Sodium Chloride 0.45%) 1,000 mls @ 100 mls/hr IV .Q10H [facility] Last Admin: 01/11/17 08:59 Dose: 100 mls/hr Insulin Human Regular (Humulin R Med) 0 units SC ACHS JARROD PRN Reason: Protocol Last Admin: 01/11/17 08:05 Dose: Not Given Metoprolol Tartrate (Lopressor) 5 mg IVP ONCE PRN PRN Reason: HR>120 Stop: 01/12/17 08:45 Last Admin: 01/11/17 08:54 Dose: 5 mg Pantoprazole Sodium (Protonix Inj) 40 mg IVP Q12 [facility] Last Admin: 01/11/17 09:43 Dose: 40 mg - Labs Labs: 01/11/17 05:15 01/11/17 05:15 PT 13.1 Seconds (9.9-11.8) H 01/10/17 10:45 INR 1.21 (0.93-1.08) H 01/10/17 10:45 APTT 35.7 Seconds (23.7-30.8) H 01/10/17 10:45 - Constitutional Appears: Non-toxic, No Acute Distress, Chronically Ill - Head Exam Head Exam: ATRAUMATIC, NORMOCEPHALIC - Eye Exam Eye Exam: EOMI, Normal appearance - ENT Exam ENT Exam: Mucous Membranes Moist - Neck Exam Neck Exam: absent: Lymphadenopathy, Meningismus - Respiratory Exam Respiratory Exam: Clear to Ausculation Bilateral Additional comments: Mild rales. Was wheezing prior to duonebs, improved. - Cardiovascular Exam Cardiovascular Exam: Tachycardia, RRR, +S1, +S2 - GI/Abdominal Exam GI & Abdominal Exam: Soft. absent: Guarding, Rigid, Tenderness - Extremities Exam Extremities Exam: absent: Calf Tenderness, Normal Inspection (See skin exam), Pedal Edema - Neurological Exam Neurological Exam: Alert, Oriented x3 Additional comments: Sleepy, but arousable, responds appropriately, speaking mohawk - Psychiatric Exam Psychiatric exam: Normal Affect, Normal Mood - Skin Additional comments: Multiple psoriatic plaques diffusely on chest, neck, b/l UE, b/l LE Left leg with large erythematous indurated plaque on left thigh and buttock, with 2cm bulla with no purulence or bleeding. Tender - Improving, reduced induration since yesterday, remains tender Assessment and Plan - Assessment and Plan (Free Text) Assessment: 86 yo mohawk speaking M with PMH of DM, HTN, emphysema, psoriasis, and dementia , admitted to ICU for severe sepsis with AMS 2/2 UTI vs cellulitis vs colitis. DNI/DNR per power of family law attorney. Neuro: - Patient is awake and alert, responding appropriately. Very lethargic yesterday , but improved after fluid resucition and starting antibiotics - Continue to monitor mental status with continuing treatment Cardio: - EKG shows NSR, borderline tachycardia - Patient became hypertensive, tachycardic, in respiratory distress. Started BIPAP and given lopressor, improved, currently stable. - H/o HTN, HLD, holding home antihypertensives due to state of sepsis - Received total 7L yesterday, with 2.4L urine output. Currently on 1/2NS@100 - Normotensive - Lopressor 5mg IVP Q3 PRN for hypertension and tachycardia - Maintain mean BP>60 Pulm: - Patient continues to have wheezing on exam, with history of emphysema - Refused duoneb yesterday, but accepted it today, improved after treatment. - Duoneb Q6 - Maintain O2% >90% - Consulted pulm (Dr. Michelle) GI: - Tolerating PO, will monitor blood glucose and adjust diet - Will hold his diet for now, pending reevaluation of his respiratory status and mental status - Ppx: Protonix Renal: - NIYA, likely prerenal due to hydration status, creatinine 1.5 today - Received total 7L yesterday, with 2.4L urine output. Currently on 1/2NS@100 - Mild hypernatremia and hyperchloremia, switched maintenance fluids to 1/2NS, recheck in AM - Strict I & O - Looney catheter in place ID: - Urosepsis, with Cellulitis and possible Colitis - Afebrile. WBC on admission 55,000. Improved to 27,000 today. Lactate improving - Received one dose of Zosyn and Vanco in ED - Urinalysis shows UTI - Physical exam shows likely cellulitis - CT abd/pelv read as "no acute findings" but shows some mildy dilated loops of bowel, possibly 2/2 early colitis - BCx shows Gram Negative Monico bacteremia. Pending UCx, stool for C. diff - Switched from Zosyn and Vanco to Merrem per ID. Continue Flagyl - Consulted ID (Anish), all recs appreciated Endo: - H/o DM, holding oral hypoglycemics - Anion gap closed - ACHS accuchecks - Sliding Scale Insulin MED - Maintain euglycemia Ppx- protonix and heparin Patient see and discussed with attending <Harpreet ST,Elissa H - Last Filed: 01/11/17 15:25> Objective - Vital Signs/Intake and Output Vital Signs (last 24 hours): Temp Pulse Resp BP Pulse Ox 98.2 F 104 H 20 189/120 H 96 01/11/17 04:10 01/11/17 13:12 01/11/17 06:30 01/11/17 08:54 01/11/17 06:30 Intake and Output: 01/11/17 01/11/17 06:59 18:59 Intake Total 1500 Output Total 1500 Balance 0 - Medications Medications: Current Medications Acetaminophen (Tylenol 325mg Tab) 650 mg PO Q4 PRN PRN Reason: Fever >100.4 F Albuterol/Ipratropium (Duoneb 3 Mg/0.5 Mg (3 Ml) Ud) 3 ml IH [id number] [facility] Last Admin: 01/11/17 13:07 Dose: 3 ml Heparin Sodium (Porcine) (Heparin) 5,000 units SC Q12 JARR[facility] PRN Reason: Protocol Hydralazine HCl (Apresoline) 10 mg IVP Q6 PRN PRN Reason: SBP>180, DBP>110 Metronidazole (Flagyl) 500 mg in 100 mls @ 100 mls/hr IVPB Q8 [facility] PRN Reason: Protocol Last Admin: 01/11/17 06:20 Dose: 100 mls/hr Meropenem 1g/NS 100mL IVPB (Meropenem 1g/Ns 100ml Ivpb) 1 gm in 100 mls @ 100 mls/hr IVPB Q12 [facility] PRN Reason: Protocol Stop: 01/17/17 22:31 Last Admin: 01/10/17 23:00 Dose: 100 mls/hr Sodium Chloride (Sodium Chloride 0.45%) 1,000 mls @ 100 mls/hr IV .Q10H [facility] Last Admin: 01/11/17 08:59 Dose: 100 mls/hr Insulin Human Regular (Humulin R Med) 0 units SC ACHS JARROD PRN Reason: Protocol Last Admin: 01/11/17 08:05 Dose: Not Given Metoprolol Tartrate (Lopressor) 5 mg IVP Q3 PRN PRN Reason: SBP>180, DBP>105, HR>120 Stop: 01/12/17 08:45 Pantoprazole Sodium (Protonix Inj) 40 mg IVP Q12 [facility] Last Admin: 01/11/17 09:43 Dose: 40 mg - Labs Labs: 01/11/17 05:15 01/11/17 05:15 PT 13.1 Seconds (9.9-11.8) H 01/10/17 10:45 INR 1.21 (0.93-1.08) H 01/10/17 10:45 APTT 35.7 Seconds (23.7-30.8) H 01/10/17 10:45 Attending/Attestation - Attestation I have personally seen and examined this patient.: Yes I have fully participated in the care of the patient.: Yes I have reviewed all pertinent clinical information, including history, physical exam and plan: Yes Notes (Text): 01/11/17 15:24 86 y/o M w/ Sepsis or urinary source. WBC improved. No SHOCk noted. SVT resoleved w/ Lopressor IV fluids 7 L given and ABX switched to Meropenum. BIPAP PRN. SOb improved. Mental status improved. DNR/DNI dvt P cc time 55 min
[2017-01-11] MEDS: Meropenem 1g/NS 100mL IVPB 1 GM/100 ML PIGGYBACK IVPB SCH (22:00)
--- NOTE | 2017-01-11 22:39 | CP.PCM.PN ---
Subjective - Date & Time of Evaluation Date of Evaluation: 01/11/17 Time of Evaluation: 05:00 - Subjective Subjective: 86 year olld male with PMH of DM, HTN, emphysema, dementia and Psoriasis was brought in from the snf because of fever and lethargy. The patient was also noted to have tachypnea in the snf. There was no note of loss of consciousness, no vomiting, no diarrhea, no trauma to the head, no convulsions. Septic work up was done in the ED, and the blood cx are now showing gram negative bacilli. Infectious diseases consult is requested to further evaluate and manage. Currently the patient is on BiPAP, arousable by verbal and tactile stimuli and answers some questions but still is lethargic. Full review of systems is difficult to obtain due to the lethargy, but the patient states he has no headache, no abdominal pain, no chest pain. Objective - Vital Signs/Intake and Output Vital Signs (last 24 hours): Temp Pulse Resp BP Pulse Ox 98.2 F 104 H 20 189/120 H 96 01/11/17 04:10 01/11/17 13:12 01/11/17 06:30 01/11/17 08:54 01/11/17 06:30 Intake and Output: 01/11/17 01/12/17 18:59 06:59 Intake Total 1300 Output Total 750 Balance 550 - Medications Medications: Current Medications Acetaminophen (Tylenol 325mg Tab) 650 mg PO Q4 PRN PRN Reason: Fever >100.4 F Albuterol/Ipratropium (Duoneb 3 Mg/0.5 Mg (3 Ml) Ud) 3 ml IH [id number] [facility] Last Admin: 01/11/17 20:00 Dose: 3 ml Heparin Sodium (Porcine) (Heparin) 5,000 units SC Q12 [facility] PRN Reason: Protocol Hydralazine HCl (Apresoline) 10 mg IVP Q6 PRN PRN Reason: SBP>180, DBP>110 Metronidazole (Flagyl) 500 mg in 100 mls @ 100 mls/hr IVPB Q8 [facility] PRN Reason: Protocol Last Admin: 01/11/17 22:18 Dose: 100 mls/hr Meropenem 1g/NS 100mL IVPB (Meropenem 1g/Ns 100ml Ivpb) 1 gm in 100 mls @ 100 mls/hr IVPB Q12 [facility] PRN Reason: Protocol Stop: 01/17/17 22:31 Last Admin: 01/10/17 23:00 Dose: 100 mls/hr Sodium Chloride (Sodium Chloride 0.45%) 1,000 mls @ 100 mls/hr IV .Q10H [facility] Last Admin: 01/11/17 20:00 Dose: 100 mls/hr Insulin Human Regular (Humulin R Med) 0 units SC ACHS JARROD PRN Reason: Protocol Last Admin: 01/11/17 22:10 Dose: Not Given Metoprolol Tartrate (Lopressor) 5 mg IVP Q3 PRN PRN Reason: SBP>180, DBP>105, HR>120 Stop: 01/12/17 08:45 Pantoprazole Sodium (Protonix Inj) 40 mg IVP Q12 [facility] Last Admin: 01/11/17 09:43 Dose: 40 mg - Labs Labs: 01/11/17 05:15 01/11/17 05:15 PT 13.1 Seconds (9.9-11.8) H 01/10/17 10:45 INR 1.21 (0.93-1.08) H 01/10/17 10:45 APTT 35.7 Seconds (23.7-30.8) H 01/10/17 10:45 - Constitutional Appears: Well - Head Exam Head Exam: ATRAUMATIC, NORMAL INSPECTION, NORMOCEPHALIC - Eye Exam Eye Exam: EOMI, Normal appearance, PERRL Pupil Exam: NORMAL ACCOMODATION, PERRL - ENT Exam ENT Exam: Mucous Membranes Moist, Normal Exam - Neck Exam Neck Exam: Full ROM, Normal Inspection. absent: Lymphadenopathy - Respiratory Exam Respiratory Exam: Clear to Ausculation Bilateral, NORMAL BREATHING PATTERN - Cardiovascular Exam Cardiovascular Exam: REGULAR RHYTHM, +S1, +S2. absent: Murmur - GI/Abdominal Exam GI & Abdominal Exam: Soft, Normal Bowel Sounds. absent: Tenderness - Rectal Exam Rectal Exam: NORMAL INSPECTION - Exam Exam: Circumcision, NORMAL INSPECTION External exam: NORMAL EXTERNAL EXAM Speculum exam: NORMAL SPECULUM EXAM Bimanual exam: NORMAL BIMANUAL EXAM - Extremities Exam Extremities Exam: Full ROM, Normal Capillary Refill, Normal Inspection. absent : Joint Swelling, Pedal Edema - Back Exam Back Exam: NORMAL INSPECTION - Neurological Exam Neurological Exam: Alert, Awake, CN II-XII Intact, Normal Gait, Oriented x3 - Psychiatric Exam Psychiatric exam: Normal Affect, Normal Mood - Skin Skin Exam: Dry, Intact, Normal Color, Warm Assessment and Plan - Assessment and Plan (Free Text) Assessment: Assessment: 86 yo bulgarian speaking M with PMH of DM, HTN, emphysema, psoriasis, and dementia , admitted to ICU for severe sepsis with AMS 2/2 UTI vs cellulitis vs colitis. DNI/DNR per power of research attorney. Neuro: - Patient is awake and alert, responding appropriately. Very lethargic yesterday , but improved after fluid resucition and starting antibiotics - Continue to monitor mental status with continuing treatment Cardio: - EKG shows NSR, borderline tachycardia - Patient became hypertensive, tachycardic, in respiratory distress. Started BIPAP and given lopressor, improved, currently stable. - H/o HTN, HLD, holding home antihypertensives due to state of sepsis - Received total 7L yesterday, with 2.4L urine output. Currently on 1/2NS@100 - Normotensive - Lopressor 5mg IVP Q3 PRN for hypertension and tachycardia - Maintain mean BP>60 Pulm: - Patient continues to have wheezing on exam, with history of emphysema - Refused duoneb yesterday, but accepted it today, improved after treatment. - Duoneb Q6 - Maintain O2% >90% - Consulted pulm (Dr. Michelle) GI: - Tolerating PO, will monitor blood glucose and adjust diet - Will hold his diet for now, pending reevaluation of his respiratory status and mental status - Ppx: Protonix Renal: - NIYA, likely prerenal due to hydration status, creatinine 1.5 today - Received total 7L yesterday, with 2.4L urine output. Currently on 1/2NS@100 - Mild hypernatremia and hyperchloremia, switched maintenance fluids to 1/2NS, recheck in AM - Strict I & O - Looney catheter in place ID: - Urosepsis, with Cellulitis and possible Colitis - Afebrile. WBC on admission 55,000. Improved to 27,000 today. Lactate improving - Received one dose of Zosyn and Vanco in ED - Urinalysis shows UTI - Physical exam shows likely cellulitis - CT abd/pelv read as "no acute findings" but shows some mildy dilated loops of bowel, possibly 2/2 early colitis - BCx shows Gram Negative Monico bacteremia. Pending UCx, stool for C. diff - Switched from Zosyn and Vanco to Merrem per ID. Continue Flagyl - Consulted ID (Anish), all recs appreciated Endo: - H/o DM, holding oral hypoglycemics - Anion gap closed - ACHS accuchecks - Sliding Scale Insulin MED - Maintain euglycemia Ppx- protonix and heparin
[2017-01-12] MEDS: Albuterol-Ipratrop 3 mg / 0.5 (3 ml) UD IH SCH ×4 (02:20→21:10)
--- NOTE | 2017-01-12 03:26 | CON ---
DATE: 01/11/2017 PULMONARY CRITICAL CARE CONSULTATION REFERRING PHYSICIAN: Dr. Castro. REASON FOR CONSULTATION: Chronic obstructive lung disease, admitted with respiratory failure. HISTORY OF PRESENT ILLNESS: This is an 86-year-old gentleman with past medical history significant for chronic obstructive lung disease, diabetes, and hypertension, who is a sn[facility] resident, brought in because of lethargy, short of breath, fever, found to be in sepsis and also treated for respiratory failure. BiPAP was placed on. Started on antibiotics this morning. He is in intensive care unit. Feels little better on nasal cannula. Decreased cough and shortness of breath. There is no chest pain. No nausea, no vomiting, no diarrhea. No leg pain or leg swelling. PAST MEDICAL HISTORY: Chronic obstructive lung disease, diabetes, hypertension, also has a history of psoriasis and urinary urgency. ALLERGIES: UNKNOWN. SOCIAL HISTORY: History of heavy smoking. Denies any alcohol use. FAMILY HISTORY: Nonsignificant. Cardiopulmonary disease reported. REVIEW OF SYSTEMS: There is no headache, no rhinitis. Has cough, shortness of breath. No chest pain. No hemoptysis. No hematuria. No diarrhea. Has some trace leg swelling. PHYSICAL EXAMINATION: GENERAL: Lying in the bed, no acute distress. VITAL SIGNS: Temp is 98, heart rate is 104, respiratory rate is 20, blood pressure 189/120, pulse ox 96% on nasal cannula. HEENT: . NECK: Supple. No JVD. LUNGS: Prolonged expiratory phase with some wheezing. HEART: S1 and S2. ABDOMEN: Soft, nontender. No organomegaly. EXTREMITIES: Legs, trace edema. NEUROLOGIC: Awake, alert, does follow simple commands. LABORATORY DATA: Shows hemoglobin 14.4, hematocrit 43.1, WBC 28,000, platelet is 102. INR 1.21, PTT 36. Blood gases drawn yesterday shows pH 7.20, this is a VBG; pCO2 is 29; O2 is 149. Sodium 150, potassium 4.0, chloride 121, bicarbonate 19, BUN 31, creatinine 1.5, glucose 120, lactic acid 1.6, calcium 8.8. PSA 0.9. Urinalysis shows leukocyte esterase is large, blood is large. Blood cultures have Gram-negative rods. Urine has a Gram-negative krysten. Stool for C. diff is negative. MEDICATIONS: He is on hydralazine 10 mg q. 6 hours p.r.n., DuoNeb q. 6 hours, Flagyl 500 mg q. 8 hours, heparin 5000 units subcu q. 12 hours, metoprolol tartrate 5 mg q. 3 hours p.r.n., meropenem 1 g IV q. 12 hours, Protonix 40 mg twice a day, IV fluid half normal saline 100 mL per hour, Tylenol p.r.n. basis. IMPRESSION AND PLAN: Gram-negative bacteremia, probably source is genitourinary tract; chronic obstructive lung disease; diabetes; hypertension; also paroxysmal atrial fibrillation, presently in sinus rhythm. Agree with the present management. Continue antibiotics covering healthcare-associated Gram negatives for now until ID of organism is back. Continue inhaled bronchodilator, gastric prophylaxis, SCDs to lower extremities. We will get EKG and echocardiogram. Thank you, and we will follow with you. Marva Michelle MD
[2017-01-12] MEDS: metroNIDAZOLE IV 500 mg/100 ml 500 MG/100 ML BAG IVPB SCH ×2 (05:45→13:16)
[2017-01-12] MEDS: Insulin Reg-MEDIUM-Coverage SC SCH ×4 (08:04→21:39)
[2017-01-12 08:45] LABS: HEMOGLOBIN 12.5 gm/dL (14.0-18.0); MEAN CELL VOLUME 90.6 fL (80.0-105.0); MEAN CORPUSCULAR HEMOGLOBIN 29.3 pg (25.0-35.0); MEAN CORPUSCULAR HGB CONC 32.4 g/dl (31.0-37.0); MEAN PLATELET VOLUME 11.7 fl (7.0-11.0); PLATELET COUNT 65 10^3/uL (120.0-450.0); RBC 4.26 10^6/uL (3.5-6.1); RED CELL DISTRIBUTION WIDTH 15.1 % (11.5-14.5); WHITE BLOOD COUNT 15.7 10^3/ul (4.5-11.0)
[2017-01-12 08:50] LABS: CALCIUM 8.5 mg/dL (8.4-10.5)
[2017-01-12] MEDS: Sodium Chloride 0.45% 1,000 ML IV SCH (09:21)
[2017-01-12] MEDS: Meropenem 1g/NS 100mL IVPB 1 GM/100 ML PIGGYBACK IVPB SCH ×2 (09:21→21:38)
[2017-01-12 10:12] LABS: BAND 4 % (0-2); BASOPHIL 1 % (0.0-1.0); LYMPHOCYTE 3 % (22.0-35.0); NEUTROPHIL 92 % (50.0-70.0)
[2017-01-12 10:14] LABS: PLATELET ESTIMATE LOW (NORMAL)
[2017-01-12] MEDS ORDERED: Albuterol-Ipratrop 3 mg / 0.5 (3 ml) UD IH STA (19:22)
--- NOTE | 2017-01-12 19:30 | CP.PCM.PN ---
Subjective - Date & Time of Evaluation Date of Evaluation: 01/12/17 Time of Evaluation: 19:29 - Subjective Subjective: Patient was seen at bed side. As per nurse, he has audible wheezing, complains of abdominal pain and has elevated blood pressure.Just received duoneb nebulizer treatment. Received cardizem 30 mg po earlier for BP, which is still high. 171/108 ,HR 112/min, pulse ox 98% on 2 L/min. He speaks Vietnamese. Complains of diffuse abdominal pain and shortness of breath. No other complaints. Medical record was reviewed. 86 year odl male , fever ,tachycardia, AMS,leukocytosis, hypokalemia, hypnatremia , hypoglycemia, PMH:DM,HTN, COPD,emphysema, smoker, psoriasis, fall ,ex alcoholic. Objective - Vital Signs/Intake and Output Vital Signs (last 24 hours): Temp Pulse Resp BP Pulse Ox 98.1 F 112 H 21 151/91 H 95 01/12/17 18:08 01/12/17 18:08 01/12/17 18:08 01/12/17 18:08 01/12/17 18:08 Intake and Output: 01/12/17 01/13/17 18:59 06:59 Output Total 600 Balance -600 - Medications Medications: Current Medications Acetaminophen (Tylenol 325mg Tab) 650 mg PO Q4 PRN PRN Reason: Fever >100.4 F Albuterol/Ipratropium (Duoneb 3 Mg/0.5 Mg (3 Ml) Ud) 3 ml IH [id number] [facility] Last Admin: 01/12/17 14:21 Dose: 3 ml Diltiazem HCl (Cardizem) 30 mg PO Q8H [facility] Last Admin: 01/12/17 17:00 Dose: 30 mg Heparin Sodium (Porcine) (Heparin) 5,000 units SC Q12 [facility] PRN Reason: Protocol Last Admin: 01/12/17 09:20 Dose: 5,000 units Hydralazine HCl (Apresoline) 10 mg IVP Q6 PRN PRN Reason: SBP>180, DBP>110 Meropenem 1g/NS 100mL IVPB (Meropenem 1g/Ns 100ml Ivpb) 1 gm in 100 mls @ 100 mls/hr IVPB Q12 [facility] PRN Reason: Protocol Stop: 01/17/17 22:31 Last Admin: 01/12/17 09:21 Dose: 100 mls/hr Sodium Chloride (Sodium Chloride 0.45%) 1,000 mls @ 100 mls/hr IV .Q10H [facility] Last Admin: 01/12/17 09:21 Dose: 100 mls/hr Insulin Human Regular (Humulin R Med) 0 units SC ACHS [facility] PRN Reason: Protocol Last Admin: 01/12/17 16:08 Dose: Not Given Pantoprazole Sodium (Protonix Inj) 40 mg IVP Q12 [facility] Last Admin: 01/12/17 09:20 Dose: 40 mg - Labs Labs: 01/12/17 08:34 01/12/17 08:34 PT 13.1 Seconds (9.9-11.8) H 01/10/17 10:45 INR 1.21 (0.93-1.08) H 01/10/17 10:45 APTT 35.7 Seconds (23.7-30.8) H 01/10/17 10:45 Laboratory Last Values WBC 15.7 10^3/ul (4.5-11.0) H D 01/12/17 08:34 RBC 4.26 10^6/uL (3.5-6.1) 01/12/17 08:34 Hgb 12.5 gm/dL (14.0-18.0) L 01/12/17 08:34 Hct 38.6 % (42.0-52.0) L 01/12/17 08:34 MCV 90.6 fL (80.0-105.0) 01/12/17 08:34 MCH 29.3 pg (25.0-35.0) 01/12/17 08:34 MCHC 32.4 g/dl (31.0-37.0) 01/12/17 08:34 RDW 15.1 % (11.5-14.5) H 01/12/17 08:34 Plt Count 65 10^3/uL (120.0-450.0) L 01/12/17 08:34 MPV 11.7 fl (7.0-11.0) H 01/12/17 08:34 Gran % [facility] 01/11/17 05:15 Lymph % (Auto) [facility] 01/11/17 05:15 Logan % (Auto) [facility] 01/11/17 05:15 Eos % (Auto) [facility] [place] 01/11/17 05:15 Baso % (Auto) [facility] [place] 01/11/17 05:15 Gran # [facility] [place] 01/11/17 05:15 Lymph # [facility] [place] 01/11/17 05:15 Logan # [facility] 01/11/17 05:15 Eos # [facility] [place] 01/11/17 05:15 Baso # [place] [facility] [place] 01/11/17 05:15 Neutrophils % (Manual) 92 % (50.0-70.0) H 01/12/17 08:34 Band Neutrophils % 4 % (0-2) H 01/12/17 08:34 Lymphocytes % (Manual) 3 % (22.0-35.0) L 01/12/17 08:34 Monocytes % (Manual) TEST NOT PERFORMED 01/12/17 08:34 Basophils % (Manual) 1 % (0.0-1.0) 01/12/17 08:34 Metamyelocytes % 2 % 01/11/17 05:15 Platelet Evaluation Low (NORMAL) 01/12/17 08:34 Giant Platelets Present 01/11/17 05:15 PT 13.1 Seconds (9.9-11.8) H 01/10/17 10:45 INR 1.21 (0.93-1.08) H 01/10/17 10:45 APTT 35.7 Seconds (23.7-30.8) H 01/10/17 10:45 pO2 149 mm/Hg (30-55) H 01/10/17 13:53 VBG pH 7.20 (7.32-7.43) L 01/10/17 13:53 VBG pCO2 29.0 (40-60) L 01/10/17 13:53 VBG HCO3 11.3 mmol/l (21-28) L 01/10/17 13:53 VBG Total CO2 12.2 mmol.L (22-28) L 01/10/17 13:53 VBG O2 Sat (Calc) 100.6 % (40-65) H 01/10/17 13:53 VBG Base Excess -15.3 mmol/L (0.0-2.0) L 01/10/17 13:53 VBG Potassium 4.0 mmol/L (3.6-5.2) 01/10/17 13:53 Sodium 156.0 mmol/L (132-148) H 01/10/17 13:53 Chloride 110.0 mmol/L (98-107) H 01/10/17 13:53 Glucose 239 mg/dl (75-110) H 01/10/17 13:53 Lactate 4.1 mmol/L (0.7-2.1) H* 01/10/17 13:53 FiO2 21.0 % 01/10/17 13:53 Sodium 146 mmol/L (132-148) 01/12/17 08:34 Potassium 3.6 mmol/L (3.6-5.0) 01/12/17 08:34 Chloride 119 mmol/L (98-107) H 01/12/17 08:34 Carbon Dioxide 18 mmol/L (21-33) L 01/12/17 08:34 Anion Gap 13 (10-20) 01/12/17 08:34 BUN 34 mg/dL (7-21) H 01/12/17 08:34 Creatinine 1.5 mg/dL (0.5-1.4) H 01/12/17 08:34 Est GFR ( Amer) 54 01/12/17 08:34 Est GFR (Non-Af Amer) 44 01/12/17 08:34 POC Glucose (mg/dL) 141 mg/dL (65-110) H 01/12/17 15:59 Random Glucose 123 mg/dL (70-110) H 01/12/17 08:34 Lactic Acid 1.6 mmol/L (0.7-2.1) 01/11/17 05:15 Calcium 8.5 mg/dL (8.4-10.5) 01/12/17 08:34 Phosphorus 2.4 mg/dL (2.5-4.5) L 01/10/17 10:45 Magnesium 1.9 mg/dL (1.7-2.2) 01/10/17 10:45 Total Bilirubin 1.0 mg/dL (0.2-1.3) 01/10/17 10:45 AST 60 U/L (15-59) H 01/10/17 10:45 ALT 21 U/L (7-56) 01/10/17 10:45 Alkaline Phosphatase 101 U/L (38-133) 01/10/17 10:45 Troponin I 0.06 ng/mL 08/05/17 10:45 NT-Pro-B Natriuret Pep 3760 pg/mL (0-450) H 01/10/17 10:45 Total Protein 7.7 g/dL (5.8-8.3) 01/10/17 10:45 Albumin 4.1 g/dL (3.0-4.8) 01/10/17 10:45 Globulin 3.7 gm/dL 01/10/17 10:45 Albumin/Globulin Ratio 1.1 (1.1-1.8) 01/10/17 10:45 Prostate Specific Ag 0.9 ng/mL (0.00-2.5) 01/11/17 12:20 Venous Blood Potassium 4.0 mmol/L (3.6-5.2) 01/10/17 13:53 Urine Color Yellow (YELLOW) 01/10/17 11:00 Urine Appearance Cloudy (CLEAR) 01/10/17 11:00 Urine pH 8.0 (4.7-8.0) 01/10/17 11:00 Ur Specific [place] 1.020 (1.005-1.035) 01/10/17 11:00 Urine Protein 100 mg/dL (<30 mg/dL) H 01/10/17 11:00 Urine Glucose (UA) Negative mg/dL (NEGATIVE) 01/10/17 11:00 Urine Ketones Negative mg/dL (NEGATIVE) 01/10/17 11:00 Urine Blood Large (NEGATIVE) H 01/10/17 11:00 Urine Nitrate Negative (NEGATIVE) 01/10/17 11:00 Urine Bilirubin Negative (NEGATIVE) 01/10/17 11:00 Urine Urobilinogen 0.2 E.U./dL (<1 E.U./dL) 01/10/17 11:00 Ur Leukocyte Esterase Large Rayray/uL (NEGATIVE) H 01/10/17 11:00 Urine RBC 0 - 2 /hpf (0-2) 01/10/17 11:00 Urine WBC 1 - 3 /hpf (0-6) 01/10/17 11:00 Urine Bacteria Many (NEG) 01/10/17 11:00 - Constitutional Appears: No Acute Distress - Head Exam Head Exam: ATRAUMATIC, NORMAL INSPECTION, NORMOCEPHALIC - Eye Exam Eye Exam: Normal appearance - ENT Exam ENT Exam: Normal External Ear Exam - Neck Exam Neck Exam: Normal Inspection - Respiratory Exam Respiratory Exam: Wheezes (+). absent: Accessory Muscle Use, Chest Wall Tenderness, Prolonged Expiratory Phase, Rales, Rhonchi, Respiratory Distress, Stridor - Cardiovascular Exam Cardiovascular Exam: REGULAR RHYTHM, +S1 (Normal.), +S2 (Normal.). absent: JVD - GI/Abdominal Exam GI & Abdominal Exam: absent: Distended - Rectal Exam Rectal Exam: Deferred - Exam Additional comments: Deferred. - Extremities Exam Extremities Exam: Normal Inspection - Back Exam Back Exam: NORMAL INSPECTION - Neurological Exam Neurological Exam: Alert, Awake - Psychiatric Exam Psychiatric exam: Normal Affect, Normal Mood - Skin Skin Exam: Normal Color Assessment and Plan - Assessment and Plan (Free Text) Assessment: Shortness of breath. Wheezing. Diffuse abdominal pain. Elevated blood pressure reading. Non insulin dependent DM II. HTN. COPD. Smoker. Borderline anemia. Renal insufficiency. Plan: Clonidine 0.2 mg PO STAT. Another Duoneb treatment. Toradol 30 mg IV stat. If abdominal pain not subsided, will get abdominal /pelvis CT. Continuous present management.
--- NOTE | 2017-01-12 20:49 | CP.PCM.PN ---
Subjective - Date & Time of Evaluation Date of Evaluation: 01/12/17 Time of Evaluation: 10:10 - Subjective Subjective: Comfortable in bed, not in distres but still somewhat lethargic. No fevers overnight. Objective - Vital Signs/Intake and Output Vital Signs (last 24 hours): Temp Pulse Resp BP Pulse Ox 98.5 F 87 20 155/86 H 95 01/12/17 08:06 01/12/17 08:06 01/12/17 08:06 01/12/17 08:06 01/12/17 08:06 Intake and Output: 01/12/17 01/12/17 06:59 18:59 Intake Total 1300 Output Total 750 Balance 550 - Medications Medications: Current Medications Acetaminophen (Tylenol 325mg Tab) 650 mg PO Q4 PRN PRN Reason: Fever >100.4 F Albuterol/Ipratropium (Duoneb 3 Mg/0.5 Mg (3 Ml) Ud) 3 ml IH [id number] [facility] Last Admin: 01/12/17 02:20 Dose: Not Given Heparin Sodium (Porcine) (Heparin) 5,000 units SC Q12 [facility] PRN Reason: Protocol Last Admin: 01/11/17 22:00 Dose: 5,000 units Hydralazine HCl (Apresoline) 10 mg IVP Q6 PRN PRN Reason: SBP>180, DBP>110 Metronidazole (Flagyl) 500 mg in 100 mls @ 100 mls/hr IVPB Q8 [facility] PRN Reason: Protocol Last Admin: 01/12/17 05:45 Dose: 100 mls/hr Meropenem 1g/NS 100mL IVPB (Meropenem 1g/Ns 100ml Ivpb) 1 gm in 100 mls @ 100 mls/hr IVPB Q12 [facility] PRN Reason: Protocol Stop: 01/17/17 22:31 Last Admin: 01/11/17 22:00 Dose: 100 mls/hr Sodium Chloride (Sodium Chloride 0.45%) 1,000 mls @ 100 mls/hr IV .Q10H [facility] Last Admin: 01/11/17 20:00 Dose: 100 mls/hr Insulin Human Regular (Humulin R Med) 0 units SC ACHS [facility] PRN Reason: Protocol Last Admin: 01/12/17 08:04 Dose: Not Given Pantoprazole Sodium (Protonix Inj) 40 mg IVP Q12 [facility] Last Admin: 01/11/17 22:00 Dose: 40 mg - Labs Labs: 01/12/17 08:34 01/11/17 05:15 PT 13.1 Seconds (9.9-11.8) H 01/10/17 10:45 INR 1.21 (0.93-1.08) H 01/10/17 10:45 APTT 35.7 Seconds (23.7-30.8) H 01/10/17 10:45 - Constitutional Appears: Non-toxic, No Acute Distress - Head Exam Head Exam: NORMAL INSPECTION - Neck Exam Neck Exam: absent: Meningismus - Respiratory Exam Respiratory Exam: Decreased Breath Sounds - Cardiovascular Exam Cardiovascular Exam: +S1, +S2 - GI/Abdominal Exam GI & Abdominal Exam: Soft. absent: Tenderness Assessment and Plan - Assessment and Plan (Free Text) Plan: Assessment Severe sepsis with acute renal failure and acute encephalopathy due to gram negative bacilli bacteremia, probably from UTI history of right lower extremity cellulitis DM Psoriasis HTN emphysema dementia Plan continue Merrem pending identification and sensitivities of the gram negative bacilli in the blood; urine cx already showing Proteus mirabilis; will check PSA levels; CT scan of the abdomen and pelvis did not show acute pathology will continue to monitor clinically
[2017-01-12] MEDS: Budesonide 0.5 mg/2 ml Inhal Susp UD IH SCH (21:10)
[2017-01-12] MEDS: Arformoterol 15 mcg/2 ml Inh Sol IH SCH (21:10)
--- NOTE | 2017-01-12 23:26 | PN ---
DATE: 01/12/2017 PULMONARY PROGRESS NOTE REFERRING PHYSICIAN: Dr. Castro. SUBJECTIVE: He is lying in the bed. He did have some cough and wheezing. No nausea, vomiting, or diarrhea. No leg pain or leg swelling. OBJECTIVE: GENERAL: No acute distress. VITAL SIGNS: Temperature 98, heart rate 113, respiratory rate is 20, blood pressure 160/100, pulse ox 95% on 2 liters nasal cannula. HEENT: Moist mucous membrane. Crowded airway. NECK: Supple. No JVD. LUNGS: Prolonged expiratory wheezing, few crackles. HEART: S1 and S2. ABDOMEN: Soft and nontender. No organomegaly. EXTREMITIES: There is no edema. NEUROLOGIC: Awake, alert, follows simple commands. MEDICATIONS: He is on hydralazine 10 mg q. 6 hours p.r.n., Cardizem 30 mg q. 8 hours, DuoNeb q. 6 hours, heparin 5000 units subq q. 12 hours, meropenem 1 gram IV q. 12 hours, Protonix 40 mg daily, IV fluid half normal saline 100 mL per hour, Tylenol p.r.n. basis. LABORATORY DATA: Shows hemoglobin 12.5, hematocrit 38.6, WBC 15.7, platelet is 65. Sodium 146, potassium 3.6, chloride 119, bicarbonate 18, BUN is 34, creatinine is 1.5, glucose is 123, calcium is 8.5. Microbiology: Blood culture has a gram-negative krysten. Urine culture already has organism which is Proteus mirabilis. ASSESSMENT AND PLAN: Probably proteus bacteremia, origin maybe genitourinary system, chronic obstructive lung disease, diabetes, hypertension, paroxysmal atrial fibrillation, hypertension. We will continue inhaled bronchodilator, keep head at 45 degrees, antibiotics, may add Cardizem to control the heart rate and blood pressure. Thank you, and we will follow with you. Marva Michelle MD
--- NOTE | 2017-01-13 00:09 | CP.PCM.PN ---
Subjective - Date & Time of Evaluation Date of Evaluation: 01/12/17 Time of Evaluation: 08:00 - Subjective Subjective: pt is S&E at bed side , he has audible wheezing, complains of abdominal pain and has elevated blood pressure.Just received duoneb nebulizer treatment. Received cardizem 30 mg po earlier for BP, which is still high. 171/108 ,HR 112/min, pulse ox 98% on 2 L/min. He speaks Somali. Complains of diffuse abdominal pain and shortness of breath. No other complaints. Medical record was reviewed. 86 year odl male , fever ,tachycardia, AMS,leukocytosis, hypokalemia, hypnatremia , hypoglycemia, PMH:DM,HTN, COPD,emphysema, smoker, psoriasis, fall ,ex alcoholic. d/d with house physician dr fiore . and nursing staff Objective - Vital Signs/Intake and Output Vital Signs (last 24 hours): Temp Pulse Resp BP Pulse Ox 98.1 F 113 H 21 160/100 H 95 01/12/17 18:08 01/12/17 19:33 01/12/17 18:08 01/12/17 19:33 01/12/17 18:08 Intake and Output: 01/12/17 01/13/17 18:59 06:59 Intake Total 360 Output Total 600 400 Balance -600 -40 - Medications Medications: Current Medications Acetaminophen (Tylenol 325mg Tab) 650 mg PO Q4 PRN PRN Reason: Fever >100.4 F Albuterol/Ipratropium (Duoneb 3 Mg/0.5 Mg (3 Ml) Ud) 3 ml IH [id number] [facility] Last Admin: 01/12/17 21:10 Dose: 3 ml Arformoterol Tartrate (Brovana) 15 mcg IH [id number] [facility] Last Admin: 01/12/17 21:10 Dose: 15 mcg Budesonide (Pulmicort Respules) 0.5 mg IH [id number] [facility] Last Admin: 01/12/17 21:10 Dose: 0.5 mg Diltiazem HCl (Cardizem) 30 mg PO Q8H [facility] Last Admin: 01/12/17 17:00 Dose: 30 mg Heparin Sodium (Porcine) (Heparin) 5,000 units SC Q12 [facility] PRN Reason: Protocol Last Admin: 01/12/17 21:36 Dose: 5,000 units Hydralazine HCl (Apresoline) 10 mg IVP Q6 PRN PRN Reason: SBP>180, DBP>110 Meropenem 1g/NS 100mL IVPB (Meropenem 1g/Ns 100ml Ivpb) 1 gm in 100 mls @ 100 mls/hr IVPB Q12 [facility] PRN Reason: Protocol Stop: 01/17/17 22:31 Last Admin: 01/12/17 21:38 Dose: 100 mls/hr Insulin Human Regular (Humulin R Med) 0 units SC ACHS [facility] PRN Reason: Protocol Last Admin: 01/12/17 21:39 Dose: Not Given Montelukast Sodium (Singulair) 10 mg PO HS [facility] Last Admin: 01/12/17 21:42 Dose: 10 mg Pantoprazole Sodium (Protonix Inj) 40 mg IVP Q12 [facility] Last Admin: 01/12/17 21:40 Dose: 40 mg - Labs Labs: 01/12/17 08:34 01/12/17 08:34 PT 13.1 Seconds (9.9-11.8) H 01/10/17 10:45 INR 1.21 (0.93-1.08) H 01/10/17 10:45 APTT 35.7 Seconds (23.7-30.8) H 01/10/17 10:45 - Constitutional Appears: Well - Head Exam Head Exam: ATRAUMATIC, NORMAL INSPECTION, NORMOCEPHALIC - Eye Exam Eye Exam: EOMI, Normal appearance, PERRL Pupil Exam: NORMAL ACCOMODATION, PERRL - ENT Exam ENT Exam: Mucous Membranes Moist, Normal Exam - Neck Exam Neck Exam: Full ROM, Normal Inspection. absent: Lymphadenopathy - Respiratory Exam Respiratory Exam: Decreased Breath Sounds, Prolonged Expiratory Phase, Wheezes - Cardiovascular Exam Cardiovascular Exam: REGULAR RHYTHM, +S1, +S2. absent: Murmur - GI/Abdominal Exam GI & Abdominal Exam: Soft, Normal Bowel Sounds. absent: Tenderness - Rectal Exam Rectal Exam: NORMAL INSPECTION - Exam Exam: Circumcision, NORMAL INSPECTION External exam: NORMAL EXTERNAL EXAM Speculum exam: NORMAL SPECULUM EXAM Bimanual exam: NORMAL BIMANUAL EXAM - Extremities Exam Extremities Exam: Full ROM, Normal Capillary Refill, Normal Inspection. absent : Joint Swelling, Pedal Edema - Back Exam Back Exam: NORMAL INSPECTION - Neurological Exam Neurological Exam: Alert, Awake, CN II-XII Intact, Normal Gait, Oriented x3 - Psychiatric Exam Psychiatric exam: Normal Affect, Normal Mood - Skin Skin Exam: Dry, Intact, Normal Color, Warm Assessment and Plan - Assessment and Plan (Free Text) Assessment: Assessment Severe sepsis with acute renal failure and acute encephalopathy due to gram negative bacilli bacteremia, probably from UTI history of right lower extremity cellulitis DM Psoriasis HTN emphysema dementia Plan continue Merrem pending identification and sensitivities of the gram negative bacilli in the blood; urine cx already showing Proteus mirabilis; will check PSA levels; CT scan of the abdomen and pelvis did not show acute pathology will continue to monitor clinically
[2017-01-13] MEDS ORDERED: Sodium Chloride 0.9% 250 ML IV STA ×2 (03:00→03:56)
[2017-01-13] MEDS: Albuterol-Ipratrop 3 mg / 0.5 (3 ml) UD IH SCH ×4 (03:10→19:28)
[2017-01-13 04:22] LABS: BASO # 0.02 K/mm3 (0.0-2.0); BASO % 0.2 % (0.0-3.0); BLOOD UREA NITROGEN 38 mg/dL (7-21); CALCIUM 7.9 mg/dL (8.4-10.5); EOS # 0.1 (0.0-0.7); EOS % 1.5 % (1.5-5.0); GFR AFRICAN-AMERICAN 44; GFR NON-AFRICAN AMERICAN 36; GRAN # 8.22 (1.4-6.5); HEMOGLOBIN 10.9 g/dL (14.0-18.0); LYMPH # 0.5 (1.2-3.4); LYMPH % 5.2 % (22.0-35.0); MEAN CELL VOLUME 89.2 fl (80.0-105.0); MEAN CORPUSCULAR HEMOGLOBIN 29.3 pg (25.0-35.0); MEAN CORPUSCULAR HGB CONC 32.8 g/dl (31.0-37.0); MEAN PLATELET VOLUME 11.6 fl (7.0-11.0); MONO # 0.5 (0.1-0.6); MONO % 5.1 % (1.0-6.0); PLATELET COUNT 59 10^3/uL (120.0-450.0); RBC 3.72 10^6/uL (3.5-6.1); WHITE BLOOD COUNT 9.4 10^3/ul (4.5-11.0)
[2017-01-13 04:31] LABS: B-TYPE NATRIURETIC PEPTIDE 1190 pg/mL (0-450)
[2017-01-13 04:38] LABS: TROPONIN I < 0.01 ng/mL
[2017-01-13] MEDS ORDERED: Sodium Chloride 0.9% 1,000 ML IV SCH (05:00)
[2017-01-13] MEDS ORDERED: Potassium Chloride 20 mEq ER Tab PO STA (05:10)
[2017-01-13] MEDS ORDERED: Barium Sulfate Susp 2.1% w/v, 2.0% w/w 450 mL Bottle PO ONE (06:41)
[2017-01-13] MEDS: Insulin Reg-MEDIUM-Coverage SC SCH ×4 (08:11→21:51)
[2017-01-13] MEDS: Arformoterol 15 mcg/2 ml Inh Sol IH SCH ×2 (08:23→19:29)
[2017-01-13] MEDS: Budesonide 0.5 mg/2 ml Inhal Susp UD IH SCH ×2 (08:23→19:29)
--- NOTE | 2017-01-13 09:08 | PQF RESP ---
This form is a permanent part of the medical record Dr. Michelle, Your consult on 01/11 notes "admitted with respiratory failure". Could you please document severity as acute or chronic, type with hypercapnia or hypoxia? Clarification of your documentation is requested to better reflect the severity of illness and intensity of treatment of your patient. Indicators present [] Use of Home Oxygen [] Respiratory rate > 28 or <8/min (Labored respirations) [] PCO2 > 50 mm Hg or (Hypercapnia) (somnolence) [] PaO2 < 60 mm Hg or Hypoxemia (confusion) [] ABG blood gas pH < 7.35 [] SpO2 < 90% sat on Room Air [] Cyanosis [] Unable to Speak in Full Sentences [] Use of Accessory Muscles / Tripoding [] Wheezing [] Other: [] Location in the medical record that reflects the above clinical findings: [] Treatment Provided: [] PHYSICIAN'S RESPONSE Based on your medical judgment of the clinical indicators outlined above, are you treating this patient for a known or suspected: [] Acute Respiratory Failure (hypoxia or hypercapnia) [] Chronic Respiratory Failure (hypoxia or hypercapnia) [] Acute on Chronic Respiratory Failure (hypoxia or hypercapnia) [] Hypoxemia please specify ACUTE, CHRONIC or ACUTE on CHRONIC [] Other []_ [] If unable to determine, please check the box, sign and date. Present On Admission (POA) Indicator: [] Present at the time of admission [] Not present at the time of admission [] Clinically Undetermined In responding to this query, please exercise your independent professional judgment. The fact that a question is asked does not imply that any particular answer is desired or expected. Thank you for your clarification on this documentation. If you have any questions please call:[ ] * Thank you, [ ]Bishnu Garcia [facility] #[id number] grocery s[employer] Chronic Respiratory Failure Description: Respiratory failure is a syndrome in which the respiratory system fails in one or both of its gas exchange functions: oxygenation and carbon dioxide elimination. In theory, respiratory failure is defined as a Pa02 value of <60 mm/Hg or a PaC02 of >50 mm/Hg. However, these values may be affected by renal compensation. Respiratory failure may be acute or chronic. While acute respiratory failure is characterized by life-threatening derangement in arterial blood gases and acid-base balance, the manifestations of chronic respiratory failure are less dramatic and may not be as readily apparent. Classifications: Respiratory failure may be classified as hypoxemic (usually characterized by Pa02 of <60 mm/Hg) or hypercapnic (usually characterized by PaC02 >50 mm/Hg) and either may be acute or chronic. Chronic hypercapnic respiratory failure develops over time and allows for renal compensation and an increase in bicarbonate concentration; therefore the pH is usually only slightly decreased. The distinction between acute and chronic hypoxemic respiratory failure cannot readily be made on the basis of ABGs; the clinical markers of chronic hypoxemia, such as polythycemia or cor pulmonale suggest a long standing disorder (chronic hypoxemic respiratory failure). Clinical Indicators: dyspnea at rest or "chronic" dyspnea, concomitant conditions such as polycythemia or cor pulmonale, requirement for continuous oxygen support, forced expiratory volume in one second (FEV1) of 49 or less, pursed lip breathing, "barrel" chest, hyperinflation by CXR, muscle wasting, malnutrition/obesity, poor exercise capacity, peripheral edema, description as a "blue bloater" (usually associated with chronic, obstructive bronchitis) or "pink puffer" (usually associated with emphysema) Risks: Chronic Hypoxemic Respiratory Failure - COPD, pulmonary fibrosis, asthma , pulmonary arterial hypertension, granulomatous lung diseases, congenital heart disease, bronchiectasis, kyphoscoliosis, obesity; Chronic Hypercapnic Respiratory Failure - COPD, severe asthma, myasthenia gravis, polyneuropathy, polio, head and cervical spine injuries, obesity hypoventilation syndrome. Treatment: supplemental oxygen, bronchodilators, corticosteroids, adequate nutrition, lung transplant References: Am. J. Respir. Crit. Care Med. "Global Strategy for the Diagnosis, Management and Prevention of COPD: GOLD Exectuive Summary," Niurka Blake Anzueto - 2007; Proceedings of the [employer] [employer] "Mechanisms and Measurements of Dyspnea in COPD," Aicha - 2006; WebMD; Respiratory Failure, Young Jacob MD - 12/2005; Evan's Principles of Internal Medicine, 17th edition. Acute Respiratory Failure Acute Respiratory Failure indicators include: ~Respirations >28 ~Air hunger ~Use of accessory muscles of respiration ~Inability to speak in full sentences Cyanosis ~Pulse ox <90% RA or <95% on O2 pH <7.35 or >7.45 ~pO2 < 60 mm Hg (or 10mm below COPD patient's baseline) ~pCO2 >50mm Hg (or 10mm above COPD patient's baseline) "Respiratory failure may be assigned as a principal diagnosis when it is the condition established after study to be chiefly responsible for occasioning admission to the hospital. The fact that the respiratory failure was managed without intubation and mechanical ventilation does not preclude its use." [facility], 3rd Qtr., 1988, p. 7 MTDD
--- NOTE | 2017-01-13 10:27 | CT ---
PROCEDURE: CT Abdomen and Pelvis without intravenous contrast HISTORY: abdominal pain COMPARISON: 01/10/2017 TECHNIQUE: Without contrast. Contrast Dose: Radiation dose: Total exam DLP = 681 mGy-cm. This CT exam was performed using one or more of the following dose reduction techniques: Automated exposure control, adjustment of the mA and/or kV according to patient size, and/or use of iterative reconstruction technique. FINDINGS: LOWER THORAX: Unremarkable. LIVER: Unremarkable. No gross lesion or ductal dilatation. GALLBLADDER AND BILE DUCTS: Unremarkable. PANCREAS: Unremarkable. No gross lesion or ductal dilatation. SPLEEN: Unremarkable. ADRENALS: Unremarkable. No mass. KIDNEYS AND URETERS: There is a 4 mm distal ureteral stone on the right which is seen on image 158 series 2. There is mild hydronephrosis on the right. VASCULATURE: Unremarkable. No aortic aneurysm. BOWEL: Unremarkable. No obstruction. No gross mural thickening. APPENDIX: Unremarkable. Normal appendix. PERITONEUM: Unremarkable. No free fluid. No free air. LYMPH NODES: Unremarkable. No enlarged lymph nodes. BLADDER: Unremarkable. REPRODUCTIVE: Unremarkable. BONES: No acute fracture. OTHER FINDINGS: None. IMPRESSION: 4 mm right distal ureteral stone with mild right-sided hydronephrosis
[2017-01-13] MEDS ORDERED: Potassium Chloride 20 mEq ER Tab PO ONE (11:14)
--- NOTE | 2017-01-13 12:46 | CARD ---
APPROVED REPORT EXAM: Two-dimensional and M-mode echocardiogram with Doppler and color Doppler. INDICATION Infection:Rule out subacute bacterial endocarditis HYPOTENSION 2D DIMENSIONS Left Atrium (2D)3.4 (1.6-4.0cm)IVSd1.2 (0.7-1.1cm) LVDd4.0 (3.9-5.9cm)PWd1.1 (0.7-1.1cm) LVDs2.7 (2.5-4.0cm)FS (%) 33.2 % LVEF (%)62.4 (>50%) M-Mode DIMENSIONS Aortic Root2.90 (2.2-3.7cm)Aortic Cusp Exc.1.50 (1.5-2.0cm) Aortic Valve AoV Peak Syblfwbl331.0cm/Milly Peak GR.13mmHg Mitral Valve MV E Jtbuxtpo71.9cm/sMV A Wvbfyjot605.0cm/sE/A ratio0.7 TDI E/Lateral E'0.0E/Medial E'0.0 Tricuspid Valve TR Peak Lcwxighh530jc/sRAP [id number] Peak Gr.24mmHg [id number] LEFT VENTRICLE The left ventricle is normal size. There is borderline to mild concentric left ventricular hypertrophy. The left ventricular function is normal.EF-55-60% There is mild hypokinesis in the mid-inferolateral wall. Transmitral Doppler flow pattern is Grade III-reversible restrictive diastolic dysfunction. No left ventricle thrombus noted on this study. There is no ventricular septal defect visualized. There is no left ventricular aneurysm. There is no mass noted in the left ventricle. RIGHT VENTRICLE The right ventricle is normal size. There is normal right ventricular wall thickness. The right ventricular systolic function is normal. ATRIA The left atrium size is normal. The right atrium size is normal. The interatrial septum is intact with no evidence for an atrial septal defect. AORTIC VALVE The aortic valve is thickened but opens well. There is trace to mild aortic regurgitation. Mild As Vs aortic Sclerosis There is no aortic valvular vegetation. MITRAL VALVE The mitral valve is thickened but opens well. Mitral regurgitation is trace. There is no mitral valve stenosis. There is no evidence of mitral valve prolapse. TRICUSPID VALVE The tricuspid valve is normal in structure. There is mild tricuspid regurgitation.RVSP-34 mmof Hg. There is no tricuspid valve stenosis. There is no tricuspid valve prolapse or vegetation. PULMONIC VALVE The pulmonary valve is normal in structure. There is no pulmonic valvular regurgitation. There is no pulmonic valvular stenosis. GREAT VESSELS The aortic root is normal in size. The ascending aorta is normal in size. The pulmonary artery is normal. The IVC was not visualized. PERICARDIAL EFFUSION There is no pleural effusion. There is a trace pericardial effusion. <Conclusion> Normal chamber Sizer. EF-55-60% There is trace to mild aortic regurgitation. Mitral regurgitation is trace. There is mild tricuspid regurgitation.RVSP-34 mmof Hg. The IVC was not visualized. There is a trace pericardial effusion. No vegetation or thrombus noted.
[2017-01-13] MEDS: Sodium Chloride 0.9% 1,000 ML IV SCH ×2 (13:08→22:16)
[2017-01-13] MEDS: ceFAZolin 2 GM in Sodium Chloride 0.9% 100 ML IVPB SCH ×2 (13:49→21:49)
[2017-01-13] MEDS ORDERED: ceFAZolin 2 GM in Sodium Chloride 0.9% 100 ML IVPB SCH (14:00)
--- NOTE | 2017-01-13 16:04 | CP.PCM.PN ---
Subjective - Date & Time of Evaluation Date of Evaluation: 01/13/17 Time of Evaluation: 09:40 - Subjective Subjective: Comfortable in bed, no fevers overnight. Objective - Vital Signs/Intake and Output Vital Signs (last 24 hours): Temp Pulse Resp BP Pulse Ox 98.9 F 77 22 97/59 L 98 01/13/17 07:30 01/13/17 07:30 01/13/17 07:30 01/13/17 07:30 01/13/17 07:30 Intake and Output: 01/13/17 01/13/17 06:59 18:59 Intake Total 1980 Output Total 650 Balance 1330 - Medications Medications: Current Medications Acetaminophen (Tylenol 325mg Tab) 650 mg PO Q4 PRN PRN Reason: Fever >100.4 F Albuterol/Ipratropium (Duoneb 3 Mg/0.5 Mg (3 Ml) Ud) 3 ml IH [id number] [facility] Last Admin: 01/13/17 08:23 Dose: 3 ml Arformoterol Tartrate (Brovana) 15 mcg IH [id number] [facility] Last Admin: 01/13/17 08:23 Dose: 15 mcg Budesonide (Pulmicort Respules) 0.5 mg IH [id number] [facility] Last Admin: 01/13/17 08:23 Dose: 0.5 mg Diltiazem HCl (Cardizem) 30 mg PO 0600,1400,2200 [facility] Last Admin: 01/13/17 05:56 Dose: Not Given Heparin Sodium (Porcine) (Heparin) 5,000 units SC Q12 JARROD PRN Reason: Protocol Last Admin: 01/12/17 21:36 Dose: 5,000 units Hydralazine HCl (Apresoline) 50 mg IVP Q12 [facility] Sodium Chloride (Sodium Chloride 0.9%) 1,000 mls @ 60 mls/hr IV .[id number] [facility] Last Admin: 01/13/17 05:00 Dose: 60 mls/hr Cefazolin Sodium 2 gm/ Sodium (Chloride) 100 mls @ 200 mls/hr IVPB Q8 [facility] PRN Reason: Protocol Insulin Human Regular (Humulin R Med) 0 units SC ACHS JARROD PRN Reason: Protocol Last Admin: 01/13/17 08:11 Dose: Not Given Montelukast Sodium (Singulair) 10 mg PO HS [facility] Last Admin: 01/12/17 21:42 Dose: 10 mg Pantoprazole Sodium (Protonix Inj) 40 mg IVP Q12 JARROD Last Admin: 01/12/17 21:40 Dose: 40 mg - Labs Labs: 01/13/17 04:05 01/13/17 04:05 PT 13.1 Seconds (9.9-11.8) H 01/10/17 10:45 INR 1.21 (0.93-1.08) H 01/10/17 10:45 APTT 35.7 Seconds (23.7-30.8) H 01/10/17 10:45 - Constitutional Appears: Non-toxic, No Acute Distress - Head Exam Head Exam: NORMAL INSPECTION - ENT Exam ENT Exam: Mucous Membranes Moist - Neck Exam Neck Exam: absent: Lymphadenopathy, Meningismus - Respiratory Exam Respiratory Exam: Decreased Breath Sounds - Cardiovascular Exam Cardiovascular Exam: +S1, +S2 - GI/Abdominal Exam GI & Abdominal Exam: Soft. absent: Tenderness Assessment and Plan - Assessment and Plan (Free Text) Plan: Assessment Severe sepsis with acute renal failure and acute encephalopathy due to proteus bacteremia, probably from UTI history of right lower extremity cellulitis DM Psoriasis HTN emphysema dementia Plan changed Merrem to Cefazolin (day 3); PSA levels; are normal; CT scan of the abdomen and pelvis did not show acute pathology - patient can be switched to PO Ciprofloxacin 500 mg BID to complete a 7-10 day course will continue to monitor clinically
--- NOTE | 2017-01-13 19:39 | CARD ---
APPROVED REPORT EKG Measurement Heart [id number] [id number] <Conclusion> Normal sinus rhythm Left axis deviation Nonspecific T wave abnormality Prolonged QT Abnormal ECG
--- NOTE | 2017-01-13 23:04 | CON ---
CARDIOLOGY CONSULTATION DATE: 01/13/2017 REASON FOR CONSULTATION: Hypotension, tachycardia, rule out GI bleed, admitted with sepsis. BRIEF CLINICAL HISTORY: An 86-year-old male with a past medical history of COPD, diabetes, hypertension, hyperlipidemia, emphysema, a resident of a rehab snf, transferred here to [facility] because of fever. Yesterday, the patient was complaining of lower abdominal pain and was with tachycardia and hypotension. Cardiology consult was called. The patient denies any chest pain, but complains of right lower quadrant abdominal pain. PAST MEDICAL HISTORY: Significant for hypertension, hyperlipidemia, history of psoriasis, history of diabetes, history of frequent falls and unsteady gait. FAMILY HISTORY: Father and mother noncontributory. SOCIAL HISTORY: History of heavy smoker, used to smoke 3 packs a day. History of alcohol abuse heavy, 15 beers per weekend. No history of substance abuse. ALLERGIES: NO KNOWN DRUG ALLERGY. CURRENT MEDICATIONS: The patient at snf was taking Aricept, Tylenol, ProAir, Bisacodyl, Zestril, Pepcid, insulin, Singulair, thiamine, and Diamox. REVIEW OF SYSTEMS: A 14-point review of systems is negative except as mentioned, right lower abdominal pain. Denies any nausea, vomiting or diarrhea. PHYSICAL EXAMINATION: VITAL SIGNS: Temperature afebrile, heart rate 77, blood pressure 97/59. HEENT: PERRLA. Extraocular muscles intact. NECK: Supple. No carotid bruit. No thyromegaly. CHEST: Clear to auscultation. HEART: S1 and S2 regular. ABDOMEN: Soft with right lower quadrant mild tenderness noted. LABORATORY DATA: EKG shows normal sinus, rate of 81. Blood workup as follows: WBC 9.4, admitting WBC 53.5, hemoglobin 10.5, hematocrit 33.2 and platelet count 59. Chemistry showed sodium 140, potassium 3.2, chloride of 101, carbon dioxide 19, anion gap of 10, BUN 30, and creatinine 1.8. IMPRESSION: Acute kidney injury, diabetes, hypertension, hyperlipidemia, sepsis, rule out septic shock, right lower quadrant pain, rule out intraabdominal pathology. Probable source of sepsis could be intraabdominal pathology. Tachycardia and hypotension is secondary to sepsis. The patient is an 86-year-old male with past medical history of diabetes, hypertension, hyperlipidemia, dementia, history of tobacco abuse, history of alcohol abuse admitted with sepsis, WBC 53,000, now is coming down and still the patient is complaining of right lower abdominal pain. This hypotension is probably secondary to sepsis and septic shock. RECOMMENDATIONS: We will continue IV fluid, CAT scan of the abdomen, supplement potassium, we will check serum albumin also for tomorrow and get echo to assess LV function, liver profile, TSH, hemoglobin A1c. As the patient has been hypotensive, can be considered to transfer to ICU, but the patient is DNR and DNI, so we will treat medically. We will hold the hydralazine, hold Cardizem for now till the blood pressure improves and continue IV fluid and normal saline start 75 mL an hour and repeat the lab in the morning with serum albumin and a complete TSH also. We will follow with you. Thank you Dr. Castro for providing us an opportunity in taking care of this patient, Jose Ramon Ferro. Marva Agee MD
--- NOTE | 2017-01-14 00:50 | PN ---
DATE: 01/13/2017 REFERRING PHYSICIAN: Dr. Castro. SUBJECTIVE: He is lying in the stretcher, feels okay. No headache. No rhinitis. Decreased shortness of breath. Decreased wheezing. No nausea, no vomiting, no diarrhea. No leg pain and no leg swelling. PHYSICAL EXAMINATION: GENERAL: No acute distress. VITAL SIGNS: Temperature is 98, heart rate is 79, respiratory rate is 20, blood pressure 98/59, pulse ox 99% on nasal cannula. HEENT: Moist mucous membrane. No thrush noted. NECK: Supple. No JVD. LUNGS: Prolonged expiratory phase with some wheezing with better air flow. HEART: S1 and S2. ABDOMEN: Soft, nontender. No organomegaly. EXTREMITIES: There is no edema. NEUROLOGIC: Awake and alert. Follow simple command. MEDICATIONS: He is on hydralazine 50 mg IV q.12h. also hydralazine 10 mg q.i.d. p.r.n., Brovana 50 mcg inhale twice a day, Cardizem 30 mg q.8h., Cefazolin 2 g q.8h., Cipro 500 mg twice a day, DuoNeb q.6h., heparin 5000 units subcutaneous q.12h., insulin coverage, Protonix 40 mg q.12h., Pulmicort inhaled twice a day, Singulair 10 mg daily, IV fluid normal saline 75 mL per hour, and Tylenol p.r.n. basis. LABORATORY DATA: Shows hemoglobin 10.9, hematocrit 33.2, WBC 9.4, and platelet count is 59. Sodium 142, potassium 3.2, chloride 116, bicarbonate 19, BUN 38, creatinine 1.2, glucose 124, calcium is 7.9, proBNP 1190, troponin less than 0.01, procalcitonin 35. Blood culture has proteus mirabilis and urine has proteus mirabilis. He had echocardiogram done today, which shows LV ejection fracture 55-60%, mitral regurgitation is there, mild tricuspid regurgitation, right ventricular systolic pressure is 32. No vegetation or thrombus reported. CT of the abdomen was done, which shows 4 mm right distal urethral stone and mild right-sided hydronephrosis. IMPRESSION AND PLAN: Bacteremia, sepsis, origin seems like with ureteral stone, chronic obstructive lung disease, diabetes, hypertension, paroxysmal atrial fibrillation, hypertension, pulmonary embolism, doing okay. Continue bronchodilator antibiotics, gastric prophylaxis and DVT prophylaxis. Follow up labs in the morning. We will follow with you. Marva Michelle MD
--- NOTE | 2017-01-14 02:05 | PN ---
SUBJECTIVE: The patient is seen and examined on the bedside, looking comfortable, improved a lot as compared to his admission. The patient is not very good historian. No nausea, vomiting, diarrhea. No hematuria or hematochezia. No swelling of the legs. No chest pain, no palpitations. No headache, no dizziness. PHYSICAL EXAMINATION: VITAL SIGNS: Temperature 98.9, pulse 77, respiratory rate 20, blood pressure 97/57, pulse oxymetry 98%. HEENT: Head is normocephalic and atraumatic. Eyes; PERRLA. Extraocular muscles intact. Conjunctivae clear. Nose patent. Mucous membrane moist. NECK: Supple. No carotid bruit. No JVD or thyromegaly. CHEST: Bilaterally symmetrical. HEART: S1 and S2 positive. LUNGS: Clear to auscultation. ABDOMEN: Soft. Bowel sounds present. No organomegaly. EXTREMITIES: No edema. No cyanosis. NEUROLOGIC: The patient is awake and alert. Moving all 4 extremities. No focal deficit. MEDICATIONS: DuoNeb, Brovana, Pulmicort, Cardizem, Heparin, hydralazine, NS, cefazolin, insulin, Singulair, Protonix. LABORATORY DATA: White blood cell 9.4, hemoglobin 10.9, hematocrit 33.2, platelets 59. Sodium 142, potassium 3.2, BUN 19, creatinine 1.8, glucose of 124. ASSESSMENT AND PLAN: The patient is an 86-year-old male with anemia,thrombocytopenia, hyponatremia, hypokalemia, renal insufficiency, hyperglycemia, has history of sepsis with acute renal failure and acute encephalopathy due to Proteus bacteremia probably from urinary tract infection, history of right lower extremity cellulitis improved, history of psoriasis, hypertension, emphysema and dementia. Now has nephrolithiasis with hydronephrosis. cefazolin day #3. She wants to do PSA levels. According to her, the patient's family switched it to Cipro p.o. b.i.d. for 7 to 10 days. Waiting for urology consult. Urologist's input especially in the presence of hydronephrosis and nephrolithiasis. Seen by the lithographic plate maker. Ejection fraction 50% to 60%. Reviewed the patient's CAT scan of abdomen and pelvis. GI and DVT prophylaxis. Repeat labs. We will follow. Mehreen Castro MD MTDKelechi
[2017-01-14] MEDS: Albuterol-Ipratrop 3 mg / 0.5 (3 ml) UD IH SCH ×4 (02:40→20:14)
[2017-01-14] MEDS: Sodium Chloride 0.9% 1,000 ML IV SCH ×2 (03:17→13:37)
[2017-01-14] MEDS: ceFAZolin 2 GM in Sodium Chloride 0.9% 100 ML IVPB SCH (05:11)
[2017-01-14] MEDS: Pantoprazole 40 mg EC Tab PO SCH ×3 (05:57→17:10)
[2017-01-14 06:33] LABS: BASO # 0.01 K/mm3 (0.0-2.0); BASO % 0.1 % (0.0-3.0); EOS # 0.4 (0.0-0.7); EOS % 5.3 % (1.5-5.0); GRAN # 5.47 (1.4-6.5); GRAN % 80.8 % (50.0-68.0); HEMOGLOBIN 10.8 g/dL (14.0-18.0); LYMPH # 0.6 (1.2-3.4); LYMPH % 8.3 % (22.0-35.0); MEAN CELL VOLUME 90.2 fl (80.0-105.0); MEAN CORPUSCULAR HEMOGLOBIN 29.5 pg (25.0-35.0); MEAN CORPUSCULAR HGB CONC 32.7 g/dl (31.0-37.0); MEAN PLATELET VOLUME 11.7 fl (7.0-11.0); MONO # 0.4 (0.1-0.6); MONO % 5.5 % (1.0-6.0); PLATELET COUNT 59 10^3/uL (120.0-450.0); RBC 3.66 10^6/uL (3.5-6.1); RED CELL DISTRIBUTION WIDTH 14.9 % (11.5-14.5); WHITE BLOOD COUNT 6.8 10^3/ul (4.5-11.0)
[2017-01-14 06:59] LABS: ALB/GLOB RATIO 0.9 (1.1-1.8); ALBUMIN 2.4 g/dL (3.0-4.8); MAGNESIUM 2.1 mg/dL (1.7-2.2)
[2017-01-14] MEDS: Arformoterol 15 mcg/2 ml Inh Sol IH SCH ×2 (07:21→20:14)
[2017-01-14] MEDS: Budesonide 0.5 mg/2 ml Inhal Susp UD IH SCH ×2 (07:22→20:14)
[2017-01-14] MEDS: Insulin Reg-MEDIUM-Coverage SC SCH ×4 (08:20→21:50)
--- NOTE | 2017-01-14 14:58 | PN ---
DATE: 01/14/2017 The patient in room 567, bed 2. REASON FOR CONSULTATION: Followup hypertension, tachycardia, abdominal pain. HISTORY OF PRESENT ILLNESS: An 86-year-old patient was transferred to [facility] from [facility]hab [facility] complaining of lower abdominal pain and patient developed yesterday hypertension and tachycardia. The patient's CAT scan of abdomen shows right ureteral stone 4 mm in size with hydronephrosis. SUBJECTIVE: The patient lying flat in bed without chest pain, short of breath or palpitation. PHYSICAL EXAMINATION: VITAL SIGNS: Blood pressure 116/69, respirations 20, pulse 70, temperature 98.6. HEENT: Head is normocephalic. Eyes: Pupils normal. Conjunctivae slightly pale. NECK: JVP low. Carotid equal. Thorax AP diameter normal. LUNGS: Clear. CARDIOVASCULAR: S1 and S2. ABDOMEN: Soft, bowel sounds normal. EXTREMITIES: No clubbing. No cyanosis. LABORATORY DATA: WBC 6.8, hemoglobin 10.8, hematocrit 33.0, platelet 59. Sodium 144, potassium 4.1, BUN 36, creatinine 1.7, calcium 8.0, phosphorus 1.7 but albumin also low at 2.4, total protein 4.9, random sugar 135. Echocardiogram done yesterday showed normal LV size with normal EF 55-60%, mild tricuspid regurgitation, RVSP [address] of the abdomen showed 4 mm size right ureteral stone with hydronephrosis on the right side. DIAGNOSES: Episodes of hypertension, tachycardia related to probably urinary tract infection with ureteral stone and hydronephrosis on the right side that can also be probable source of sepsis, history of diabetes, hypertension, hyperlipidemia, dementia, history of tobacco abuse and alcohol abuse, thrombocytopenia, anemia, renal dysfunction. PLAN: The patient states Cardizem is on hold because of episode of hypertension. The patient is on Cipro 500 mg p.o. q. 12 hours, DuoNeb handheld therapy, heparin 5000 units subQ q.12 hours, Singulair 10 mg p.o. at bedtime. The patient getting sodium chloride IV therapy 75 mL an hour. We will repeat CBC, SMA-7, magnesium and phosphorus level in the morning. We will follow with you. Marva Cates MD
--- NOTE | 2017-01-14 15:01 | CP.PCM.PN ---
Subjective - Date & Time of Evaluation Date of Evaluation: 01/14/17 Time of Evaluation: 09:35 - Subjective Subjective: More awake compared to previous days, comfortable, no fevers. Objective - Vital Signs/Intake and Output Vital Signs (last 24 hours): Temp Pulse Resp BP Pulse Ox 97.1 F L 79 20 98/59 L 99 01/13/17 16:13 01/13/17 16:13 01/13/17 16:13 01/13/17 16:13 01/13/17 16:13 Intake and Output: 01/14/17 01/14/17 06:59 18:59 Intake Total 2310 Output Total 600 Balance 1710 - Medications Medications: Current Medications Acetaminophen (Tylenol 325mg Tab) 650 mg PO Q4 PRN PRN Reason: Fever >100.4 F Albuterol/Ipratropium (Duoneb 3 Mg/0.5 Mg (3 Ml) Ud) 3 ml IH [id number] [facility] Last Admin: 01/14/17 07:21 Dose: 3 ml Arformoterol Tartrate (Brovana) 15 mcg IH [id number] [facility] Last Admin: 01/14/17 07:21 Dose: 15 mcg Budesonide (Pulmicort Respules) 0.5 mg IH [id number] [facility] Last Admin: 01/14/17 07:22 Dose: 0.5 mg Ciprofloxacin (Cipro) 500 mg PO Q12 [facility] PRN Reason: Protocol Stop: 01/20/17 22:01 Diltiazem HCl (Cardizem) 30 mg PO 0600,1400,2200 [facility] Last Admin: 01/13/17 05:56 Dose: Not Given Heparin Sodium (Porcine) (Heparin) 5,000 units SC Q12 [facility] PRN Reason: Protocol Last Admin: 01/13/17 22:03 Dose: 5,000 units Hydralazine HCl (Apresoline) 50 mg IVP Q12 [facility] Last Admin: 01/13/17 09:36 Dose: Not Given Hydralazine HCl (Apresoline) 10 mg PO QID PRN PRN Reason: FOR SBP>170 and diastolic>100 Cefazolin Sodium 2 gm/ Sodium (Chloride) 100 mls @ 200 mls/hr IVPB Q8 [facility] PRN Reason: Protocol Last Admin: 01/14/17 05:11 Dose: 200 mls/hr Sodium Chloride (Sodium Chloride 0.9%) 1,000 mls @ 75 mls/hr IV .[id number] [facility] Last Admin: 01/14/17 03:17 Dose: Not Given Insulin Human Regular (Humulin R Med) 0 units SC ACHS [facility] PRN Reason: Protocol Last Admin: 01/14/17 08:20 Dose: Not Given Montelukast Sodium (Singulair) 10 mg PO HS [facility] Last Admin: 01/13/17 21:51 Dose: 10 mg Pantoprazole Sodium (Protonix Ec Tab) 40 mg PO 0600,1600 [facility] Last Admin: 01/14/17 05:57 Dose: 40 mg - Labs Labs: 01/14/17 05:30 01/14/17 05:30 PT 13.1 Seconds (9.9-11.8) H 01/10/17 10:45 INR 1.21 (0.93-1.08) H 01/10/17 10:45 APTT 35.7 Seconds (23.7-30.8) H 01/10/17 10:45 - Constitutional Appears: Non-toxic, No Acute Distress - Head Exam Head Exam: NORMAL INSPECTION - ENT Exam ENT Exam: Mucous Membranes Moist - Neck Exam Neck Exam: absent: Lymphadenopathy, Meningismus - Respiratory Exam Respiratory Exam: Decreased Breath Sounds - Cardiovascular Exam Cardiovascular Exam: +S1, +S2 - GI/Abdominal Exam GI & Abdominal Exam: Soft. absent: Tenderness Assessment and Plan - Assessment and Plan (Free Text) Plan: Assessment Severe sepsis with acute renal failure and acute encephalopathy due to proteus bacteremia, probably from UTI history of right lower extremity cellulitis DM Psoriasis HTN emphysema dementia Plan continue Cefazolin (day 4); PSA levels are normal; CT scan of the abdomen and pelvis did not show acute pathology - patient can be switched to PO Ciprofloxacin 500 mg BID to complete a 7-10 day course when ready for discharge will continue to monitor clinically
--- NOTE | 2017-01-14 18:23 | PN ---
PULMONARY PROGRESS NOTE REFERRING PHYSICIAN: Dr. Castro. DATE OF SERVICE: 01/14/2017 SUBJECTIVE: He is lying in the bed, head at 45 degrees, feels much better, decreased cough, decreased short of breath, decreased wheezing. No nausea. No nausea. No vomiting. No diarrhea. No leg pain. No leg swelling. PHYSICAL EXAMINATION: GENERAL: No acute distress. VITAL SIGNS: Temperature is 98, heart rate is 73, respiratory rate is 20, blood pressure 116/69, pulse oximetry 97% on 2 L nasal cannula. HEENT: Moist mucous membrane. Crowded airway. NECK: Supple. No JVD. LUNGS: Has a few scattered rhonchi though got a fair air flow. HEART: S1 and S2. ABDOMEN: Soft, nontender. No organomegaly. EXTREMITIES: There is no edema. NEUROLOGIC: Awake, alert, follows simple commands. MEDICATIONS: He is on hydralazine 50 mg q. 12 hours, also hydralazine 10 mg q.i.d. p.r.n., Brovana 15 mcg q. 12 hours, Cardizem 30 mg q. 8 hours, Cipro 500 mg q. 12 hours, DuoNeb q. 6 hours, Flomax 0.4 mg twice a day, heparin 5000 units subcutaneous q. 12 hours, insulin coverage, Protonix 40 mg twice a day, Pulmicort inhaled twice a day, Singulair 10 mg at bedtime, IV fluid normal saline 75 mL per hour, Tylenol p.r.n. basis. LABORATORY DATA: Shows hemoglobin 10.8, hematocrit 33.0, WBC 6.8, platelet count is 59. Sodium 144, potassium 4.1, chloride 119, bicarbonate 19, BUN 36, creatinine 1.7, glucose 109, hemoglobin A1c 6.4, calcium 8.0, phosphorus 1.7, magnesium 2.1, albumin 2.4, TSH 2.49. Microbiology: Repeat blood culture . Had echocardiogram done yesterday, shows LV ejection fraction 55% to 60%, mild tricuspid regurgitation, right ventricular systolic pressure is 34. IMPRESSION AND PLAN: Resolving bacteremia, sepsis, probably origin is genitourinary system, has a ureteral stone, chronic obstructive lung disease, diabetes, hypertension, paroxysmal atrial fibrillation, hypertension. From pulmonary point of view, he is doing okay. Continue bronchodilator, keep head at 45 degrees, sleep apnea precaution, encourage CPAP use, antibiotics as per Infectious Disease, out of bed to chair, start physical therapy. Follow up labs in the morning. Thank you and we will follow with you. Marva Michelle MD
--- NOTE | 2017-01-15 00:08 | CP.PCM.PN ---
Subjective - Date & Time of Evaluation Date of Evaluation: 01/14/17 Time of Evaluation: 07:00 - Subjective Subjective: More awake compared to previous days, comfortable, no fevers. toleratig food very well . no n,v,d Objective - Vital Signs/Intake and Output Vital Signs (last 24 hours): Temp Pulse Resp BP Pulse Ox 97.4 F L 85 20 136/68 96 01/14/17 21:49 01/14/17 21:49 01/14/17 21:49 01/14/17 21:49 01/14/17 21:49 Intake and Output: 01/14/17 01/15/17 18:59 06:59 Intake Total 480 360 Output Total 600 Balance -120 360 - Medications Medications: Current Medications Acetaminophen (Tylenol 325mg Tab) 650 mg PO Q4 PRN PRN Reason: Fever >100.4 F Albuterol/Ipratropium (Duoneb 3 Mg/0.5 Mg (3 Ml) Ud) 3 ml IH [id number] [facility] Last Admin: 01/14/17 20:14 Dose: 3 ml Arformoterol Tartrate (Brovana) 15 mcg IH [id number] [facility] Last Admin: 01/14/17 20:14 Dose: 15 mcg Budesonide (Pulmicort Respules) 0.5 mg IH [id number] [facility] Last Admin: 01/14/17 20:14 Dose: 0.5 mg Ciprofloxacin (Cipro) 500 mg PO Q12 [facility] PRN Reason: Protocol Stop: 01/20/17 22:01 Last Admin: 01/14/17 21:21 Dose: 500 mg Diltiazem HCl (Cardizem) 30 mg PO 0600,1400,2200 [facility] Last Admin: 01/13/17 05:56 Dose: Not Given Heparin Sodium (Porcine) (Heparin) 5,000 units SC Q12 [facility] PRN Reason: Protocol Last Admin: 01/14/17 21:21 Dose: 5,000 units Hydralazine HCl (Apresoline) 50 mg IVP Q12 [facility] Last Admin: 01/13/17 09:36 Dose: Not Given Hydralazine HCl (Apresoline) 10 mg PO QID PRN PRN Reason: FOR SBP>170 and diastolic>100 Sodium Chloride (Sodium Chloride 0.9%) 1,000 mls @ 100 mls/hr IV .Q10H [facility] Last Admin: 01/14/17 13:37 Dose: 100 mls/hr Insulin Human Regular (Humulin R Med) 0 units SC ACHS [facility] PRN Reason: Protocol Last Admin: 01/14/17 21:50 Dose: Not Given Montelukast Sodium (Singulair) 10 mg PO HS [facility] Last Admin: 01/14/17 21:21 Dose: 10 mg Pantoprazole Sodium (Protonix Ec Tab) 40 mg PO 0600,1600 [facility] Last Admin: 01/14/17 17:10 Dose: Not Given Tamsulosin HCl (Flomax) 0.4 mg PO BID [facility] Last Admin: 01/14/17 17:09 Dose: Not Given - Labs Labs: 01/14/17 05:30 01/14/17 05:30 PT 13.1 Seconds (9.9-11.8) H 01/10/17 10:45 INR 1.21 (0.93-1.08) H 01/10/17 10:45 APTT 35.7 Seconds (23.7-30.8) H 01/10/17 10:45 - Constitutional Appears: Well - Head Exam Head Exam: ATRAUMATIC, NORMAL INSPECTION, NORMOCEPHALIC - Eye Exam Eye Exam: EOMI, Normal appearance, PERRL Pupil Exam: NORMAL ACCOMODATION, PERRL - ENT Exam ENT Exam: Mucous Membranes Moist, Normal Exam - Neck Exam Neck Exam: Full ROM, Normal Inspection. absent: Lymphadenopathy - Respiratory Exam Respiratory Exam: Clear to Ausculation Bilateral, NORMAL BREATHING PATTERN - Cardiovascular Exam Cardiovascular Exam: REGULAR RHYTHM, +S1, +S2. absent: Murmur - GI/Abdominal Exam GI & Abdominal Exam: Soft, Normal Bowel Sounds. absent: Tenderness - Rectal Exam Rectal Exam: NORMAL INSPECTION - Exam Exam: Circumcision, NORMAL INSPECTION External exam: NORMAL EXTERNAL EXAM Speculum exam: NORMAL SPECULUM EXAM Bimanual exam: NORMAL BIMANUAL EXAM - Extremities Exam Extremities Exam: Full ROM, Normal Capillary Refill, Normal Inspection. absent : Joint Swelling, Pedal Edema - Back Exam Back Exam: NORMAL INSPECTION - Neurological Exam Neurological Exam: Alert, Awake, CN II-XII Intact, Normal Gait, Oriented x3 - Psychiatric Exam Psychiatric exam: Normal Affect, Normal Mood - Skin Skin Exam: Dry, Intact, Normal Color, Warm Assessment and Plan - Assessment and Plan (Free Text) Assessment: Assessment Severe sepsis with acute renal failure and acute encephalopathy due to proteus bacteremia, probably from UTI history of right lower extremity cellulitis DM Psoriasis HTN emphysema dementia hydronephrosis , with kidny stone Plan continue Cefazolin (day 4); PSA levels are normal; CT scan of the abdomen and pelvis did not show acute pathology except hydro with stone - patient can be switched to PO Ciprofloxacin 500 mg BID to complete a 7-10 day course when ready for discharge will continue to monitor clinically, seen by uro . started flomax bid as per uro rocmendation , will repeat scane am ,
[2017-01-15] MEDS: Albuterol-Ipratrop 3 mg / 0.5 (3 ml) UD IH SCH ×4 (01:16→20:27)
[2017-01-15] MEDS: Sodium Chloride 0.9% 1,000 ML IV SCH (03:05)
[2017-01-15] MEDS: Pantoprazole 40 mg EC Tab PO SCH (05:26)
--- NOTE | 2017-01-15 06:04 | CON ---
GENITOURINARY CONSULTATION DATE: 01/14/2017 CHIEF COMPLAINT: Altered mental status. HISTORY OF PRESENT ILLNESS: This is an 86-year-old male who is admitted to [facility] (Former[facility] with a fever and altered mental status and tachycardia, he is a resident of [facility], he has extensive past medical history, his primary medical physician told to transferred him to the emergency room, where he was seen and admitted he was currently lethargic, tachycardiac sweating, the patient is a DNR and do not intubate status. He was admitted for evaluation and treatment. During the initial few days of his hospitalization, the patient had a CT scan done on 01/10/2017, which showed unremarkable kidneys, no hydronephrosis, no solid mass, bladder was normal with a Looney catheter, there were no enlarged lymph nodes and the impression was read as no acute findings. The patient was found to have positive blood cultures for Proteus and positive urine culture for Proteus is initial. WBC count was 53.5. During the next few days of hospitalization, the patient's WBC count came down rapidly with fluids in the antibiotics. The WBC count was down to 6.8 today. He has been treated with Ancef and Cipro. The patient apparently clinically had improved, he has been afebrile with no fever noted during his entire hospitalization. Apparently the patient began complaining of some abdominal pain and a repeat CT scan was ordered. At this point, the repeat CT scan on 01/13/2017 showed a 4 mm distal right ureteral calculus with mild right-sided hydronephrosis. The patient is seen now in his room where he has resting comfortably in no acute distress. PAST MEDICAL HISTORY: Significant for diabetes, hypertension, psoriasis, multiple falls. HOME MEDICATIONS: Includes; Aricept, Tylenol, ProAir, Bisacodyl, Zestril, Pepcid, inhalers, insulin, Singulair, thiamine and Diamox. Currently on hydralazine, Apresoline, Brovana, Cardizem, Cipro, DuoNeb, Flomax, heparin, insulin, Protonix, Pulmicort, Singulair, Tylenol and IV fluids. ALLERGIES: NO KNOWN DRUG ALLERGIES. FAMILY HISTORY: Noncontributory. The patient is a [facility] resident. He is still currently DNR, DNI status. SOCIAL HISTORY: Positive for smoking, history of questionable ETOH use. REVIEW OF SYSTEMS: These could not be obtained from the patient, he is awake, alert and answering the questions and with construction teacher he is still not able to provide any coherent history at this time. PHYSICAL EXAMINATION: GENERAL: The patient is awake and alert, he is no acute distress. He has been afebrile. VITAL SIGNS: Pulse has been 96, temperature is 98.2 from this morning, respirations 21, blood pressure 160/110. NECK: Supple. There is no adenopathy. CHEST: Reveals a normal inspiratory effort. CARDIAC: Showed positive S1 and S2. There is some mild peripheral edema noted. ABDOMEN: The abdomen is soft, nontender and nondistended. There is no hepatosplenomegaly. There is no obvious costovertebral angle tenderness. GENITOURINARY: Phallus is normal. There is a common catheter in placed with clear urine in the tubing. Scrotum is normal. Testes bilaterally descended. Nontender. No masses. Epididymides are normal. EXTREMITIES: There is no cyanosis. There is mild edema. SKIN: There appears to be psoriasis. LABORATORY DATA: WBC count was 6.8, hemoglobin of 10.8, platelet count of 59, GFR appears to be 47. I do not know what his baseline is at. BNP on 01/10/2017 was 3760, which has come down to 1190 on 01/13/2017. Urine culture and blood cultures grew Proteus on radiologic exam. Last CT showing a 4 mm distal right ureteral stone with mild hydronephrosis. IMPRESSION AND PLAN: This is an 86-year-old patient who has apparently an obstructing ureteral stone which was not noted on the initial CAT scan. I discussed the patient's management with the nurse practitioner and my recommendation urologically would be when the patient had come in with urosepsis, he should have had a stent when nephrostomy placed, given that he had urosepsis and obstructing stone; however, the patient has been hospitalized already for few days and appears to have responded well to fluids and antibiotics and currently appears to be stable. The patient cannot be taken to the operating room with the DNR, DNI status. My recommendation therefore would be to repeat a CT scan, as the patient is now been started on Flomax, if the stone passes spontaneously, he can be followed conservatively, I would continue him on fluids and antibiotics at this time. If the patient does appear to be having continued sepsis, I would recommend Dr. Castro to speak with the patient's family and reverse the DNR, DNI status, as the patient can be taken to the operating room and had a stent placed. If family does not wish to have any invasive procedures done, we will avoid anesthesia and intubation, alternatively a consult should be placed with Dr. Sommers for placement of a percutaneous nephrostomy. The patient will need hematology evaluation as well, as his platelet count appears to be drooping, which may be medication related or possibly from the sepsis. The patient condition remains serious and grave. I have discussed this at length with the nurse practitioner who spoke with Dr. Castro reportedly. The plan would be to not reviews the DNR status at this time, as they are trying to avoid any invasive procedures, they will continue him on Flomax, antibiotics and IV fluids and repeat a CT scan tomorrow. I will followup with them at that point. Rishi Smith MD
[2017-01-15 07:06] LABS: BASO # 0.01 K/mm3 (0.0-2.0); BASO % 0.2 % (0.0-3.0); EOS # 0.3 (0.0-0.7); EOS % 5.3 % (1.5-5.0); GRAN # 4.92 (1.4-6.5); GRAN % 78.5 % (50.0-68.0); HEMOGLOBIN 11.1 g/dL (14.0-18.0); LYMPH # 0.6 (1.2-3.4); LYMPH % 9.3 % (22.0-35.0); MEAN CELL VOLUME 89.6 fl (80.0-105.0); MEAN CORPUSCULAR HEMOGLOBIN 28.8 pg (25.0-35.0); MEAN CORPUSCULAR HGB CONC 32.2 g/dl (31.0-37.0); MEAN PLATELET VOLUME 11.7 fl (7.0-11.0); MONO # 0.4 (0.1-0.6); MONO % 6.7 % (1.0-6.0); PLATELET COUNT 80 10^3/uL (120.0-450.0); RBC 3.85 10^6/uL (3.5-6.1); RED CELL DISTRIBUTION WIDTH 14.8 % (11.5-14.5); WHITE BLOOD COUNT 6.3 10^3/ul (4.5-11.0)
[2017-01-15 07:12] LABS: CALCIUM 8.2 mg/dL (8.4-10.5); MAGNESIUM 1.9 mg/dL (1.7-2.2)
[2017-01-15] MEDS: Arformoterol 15 mcg/2 ml Inh Sol IH SCH ×2 (08:17→20:27)
[2017-01-15] MEDS: Budesonide 0.5 mg/2 ml Inhal Susp UD IH SCH ×2 (08:18→20:27)
[2017-01-15] MEDS: Insulin Reg-MEDIUM-Coverage SC SCH ×4 (08:31→22:43)
--- NOTE | 2017-01-15 09:50 | CT ---
PROCEDURE: CT Abdomen and Pelvis without intravenous contrast HISTORY: reval ureter stone right ureter, COMPARISON: None. TECHNIQUE: Without contrast.. Contrast Dose: 0 Radiation dose: Total exam DLP = 946.16 mGy-cm. This CT exam was performed using one or more of the following dose reduction techniques: Automated exposure control, adjustment of the mA and/or kV according to patient size, and/or use of iterative reconstruction technique. FINDINGS: LOWER THORAX: Minimal posterior pleural thickening at both lung bases. Calcified pleural plaque left lower lobe. Nonspecific elevation of the right hemidiaphragm. No infiltrate/effusion. Cardiomegaly. LIVER: Unremarkable. No gross lesion or ductal dilatation. GALLBLADDER AND BILE DUCTS: Cholelithiasis without evidence of cholecystitis. PANCREAS: Unremarkable. No gross lesion or ductal dilatation. SPLEEN: Minimal splenomegaly. Trace fluid beneath left hemidiaphragm, at superior aspect of spleen. ADRENALS: Unremarkable. No mass. KIDNEYS AND URETERS: 3.6 cm mid right renal cortical cyst. 1.4 cm mid left renal cortical cyst. 1.2 cm left lower pole renal cortical cyst. Right hydroureteronephrosis. Obstructing distal right ureteral 4 mm calculus again identified. This is seen proximal to the ureterovesical junction and has not changed in position compared to the prior examination. No left hydronephrosis. No renal calculus. VASCULATURE: Unremarkable. No aortic aneurysm. BOWEL: Unremarkable. No obstruction. No gross mural thickening. APPENDIX: Unremarkable. Normal appendix. PERITONEUM: Trace ascites about superior aspect of spleen, as above. LYMPH NODES: Unremarkable. No enlarged lymph nodes. BLADDER: Grossly normal. Suboptimally distended. REPRODUCTIVE: Unremarkable prostate. BONES: No acute fracture. Large Schmorl's node in the inferior L1 vertebral endplate. Partial ankylosis of L4 and L5 vertebral bodies. OTHER FINDINGS: None. IMPRESSION: Distal right ureteral 4 mm obstructing calculus with mild right hydroureteronephrosis. No change from 01/13/2017. Additional minor findings as above
[2017-01-15] MEDS ORDERED: Sodium Chloride 0.9% 1,000 ML IV SCH (13:23)
--- NOTE | 2017-01-15 14:51 | RAD ---
PROCEDURE: Right Knee Radiographs. HISTORY: knee pain COMPARISON: None. FINDINGS: BONES: Normal. No fracture. JOINTS: Normal. No osteoarthritis. JOINT EFFUSION: None. OTHER FINDINGS: None. IMPRESSION: Normal radiographs of the right knee.
--- NOTE | 2017-01-15 14:59 | RAD ---
HISTORY: wheeze,congestion COMPARISON: 01/10/2017 FINDINGS: LUNGS: No active pulmonary disease. PLEURA: Calcified pleural plaque along left hemidiaphragm. No pleural effusion or pneumothorax. CARDIOVASCULAR: Normal. OSSEOUS STRUCTURES: No significant abnormalities. VISUALIZED UPPER ABDOMEN: Normal. OTHER FINDINGS: None. IMPRESSION: No active disease.
--- NOTE | 2017-01-15 15:01 | CP.PCM.PN ---
Subjective - Date & Time of Evaluation Date of Evaluation: 01/15/17 Time of Evaluation: 09:55 - Subjective Subjective: Comfortable in bed, not in distress, no fevers noted overnight, no nausea, no SOB at rest currently. Objective - Vital Signs/Intake and Output Vital Signs (last 24 hours): Temp Pulse Resp BP Pulse Ox 98.2 F 72 22 142/82 98 01/15/17 08:00 01/15/17 08:00 01/15/17 08:00 01/15/17 10:00 01/15/17 08:00 Intake and Output: 01/15/17 01/15/17 06:59 18:59 Intake Total 2880 600 Balance 2880 600 - Medications Medications: Current Medications Acetaminophen (Tylenol 325mg Tab) 650 mg PO Q4 PRN PRN Reason: Fever >100.4 F Albuterol/Ipratropium (Duoneb 3 Mg/0.5 Mg (3 Ml) Ud) 3 ml IH [id number] [facility] Last Admin: 01/15/17 13:56 Dose: 3 ml Arformoterol Tartrate (Brovana) 15 mcg IH [id number] [facility] Last Admin: 01/15/17 08:17 Dose: 15 mcg Budesonide (Pulmicort Respules) 0.5 mg IH [id number] [facility] Last Admin: 01/15/17 08:18 Dose: 0.5 mg Ciprofloxacin (Cipro) 500 mg PO Q12 [facility] PRN Reason: Protocol Stop: 01/21/17 10:46 Last Admin: 01/15/17 11:26 Dose: 500 mg Diltiazem HCl (Cardizem) 30 mg PO 0600,1400,2200 [facility] Last Admin: 01/13/17 05:56 Dose: Not Given Hydralazine HCl (Apresoline) 50 mg IVP Q12 [facility] Last Admin: 01/13/17 09:36 Dose: Not Given Hydralazine HCl (Apresoline) 10 mg PO QID PRN PRN Reason: FOR SBP>170 and diastolic>100 Sodium Chloride (Sodium Chloride 0.9%) 1,000 mls @ 75 mls/hr IV .[id number] [facility] Last Admin: 01/15/17 13:49 Dose: 75 mls/hr Insulin Human Regular (Humulin R Med) 0 units SC ACHS [facility] PRN Reason: Protocol Last Admin: 01/15/17 11:55 Dose: 1 units Montelukast Sodium (Singulair) 10 mg PO HS [facility] Last Admin: 01/14/17 21:21 Dose: 10 mg Pantoprazole Sodium (Protonix Ec Tab) 40 mg PO 0600 [facility] Tamsulosin HCl (Flomax) 0.4 mg PO BID [facility] Last Admin: 01/15/17 11:07 Dose: 0.4 mg - Labs Labs: 01/15/17 06:45 01/15/17 06:45 PT 13.1 Seconds (9.9-11.8) H 01/10/17 10:45 INR 1.21 (0.93-1.08) H 01/10/17 10:45 APTT 35.7 Seconds (23.7-30.8) H 01/10/17 10:45 - Constitutional Appears: Non-toxic, No Acute Distress - Head Exam Head Exam: NORMAL INSPECTION - ENT Exam ENT Exam: Mucous Membranes Moist - Neck Exam Neck Exam: absent: Meningismus - Respiratory Exam Respiratory Exam: Decreased Breath Sounds - Cardiovascular Exam Cardiovascular Exam: +S1, +S2 - GI/Abdominal Exam GI & Abdominal Exam: Soft. absent: Tenderness Assessment and Plan - Assessment and Plan (Free Text) Plan: Assessment Severe sepsis with acute renal failure and acute encephalopathy due to proteus bacteremia, probably from UTI history of right lower extremity cellulitis DM Psoriasis HTN emphysema dementia Plan continue PO Ciprofloxacin 500 mg BID to complete a 7-10 day course will continue to monitor clinically while the patient is in the hospital
--- NOTE | 2017-01-15 21:57 | PN ---
DATE: 01/15/2017 REASON FOR CONSULTATION: Followup hypertension, tachycardia, abdominal pain. SUBJECTIVE: The patient complained of mild abdominal pain, feel better, denies any chest pain, shortness of breath, any palpitation. OBJECTIVE: GENERAL: Lying flat on the bed. VITAL SIGNS: Temperature afebrile, heart rate 72, blood pressure 143/63. HEENT: PERRLA, extraocular muscles intact. NECK: Supple. No carotid bruit or thyromegaly. CHEST: Clear to auscultation. HEART: S1 and S2 regular. ABDOMEN: Soft. EXTREMITIES: Clubbing and cyanosis negative. LABORATORY DATA: Blood workup as follows; WBC 6.8, hemoglobin 11.2, hematocrit 34.5, platelet count 80. Chemistry shows sodium 143, potassium 4.3, chloride 102, CO2 18, anion gap of 13, BUN 30, creatinine 1.8. CAT scan done yesterday of the abdomen does shows distal right ureteral 4 mm obstructing calculi with mild hydronephrosis that explained the patient's pain in the back. Primarily just hypertensive response as well as tachycardia to pain, the patient had echocardiography done yesterday that showed normal chambers size, ejection fraction 55% to 60%, [id number] aortic regurgitation, trace mitral regurgitation, mild tricuspid regurgitation, RV systolic pressure 34. RECOMMENDATIONS: Continue Cardizem 30 mg, the patient is getting IV fluid, so we will change to 120 from tomorrow morning Cardizem. Continue IV fluid, *------*. We will follow with you. Thank you Dr. Castro for providing us the opportunity in taking care of the patient. Marva Agee MD
--- NOTE | 2017-01-15 23:41 | PN ---
DATE: 01/15/2017 SUBJECTIVE: The patient is seen in his room at [facility]. He is awake and alert. PHYSICAL EXAMINATION: VITAL SIGNS: He is afebrile with a temperature of 98.2, pulse of 72, blood pressure 143/63 and respirations 20. ABDOMEN: Soft, nontender and nondistended. There was no rebound, there was no guarding, there was no costovertebral angle of tenderness. LABORATORY DATA: His white count remains stable at 6.3, hemoglobin 11.1 and his platelet count has improved up to 80 at this point. Creatinine down to 1.8. On repeat CT scan the previously noted stone is again identified, it is at the ureterovesical junction. IMPRESSION AND PLAN: The patient has an obstructing right ureteral stone; although, it is apparently only [address] scan. The patient's sepsis has improved. His low platelet count also appears to be improving and was likely medication related. As the patient is currently feeling well and sepsis has apparently resolved, I do not feel he needs an emergency procedure at this point. The patient reportedly had a removal of his DO NOT RESUSCITATE and DO NOT INTUBATE status today from his family. At this point has there was no evidence of current sepsis my recommendation would be to continue him on Flomax and IV fluids. I would continue IV antibiotics as well, the plan will be to repeat a CT scan on Thursday and if the stone is still present, we can consider elective ureteroscopy with laser lithotripsy and removal of the stone. If the patient condition worsens, the plan would be to place a percutaneous nephrostomy tube, as I feel the risk of anesthesia at this point is unnecessary. In emergency situation I would not plan on removing the stone, I would simply place a stent and has the patient is a DO NOT RESUSCITATE/DO NOT INTUBATE patient from a [facility], I do not think a chronic indwelling stent would be the best choice for him. Likely this stone is going to pass spontaneously; however, if the patient's condition does appear to worsen I do think a nephrostomy tube would be the proper choice. The patient should continue on medical therapy at this point, as he does not appear to be a good candidate at this time for an elective procedure given his age, his comorbid conditions, thrombocytopenia and other medical issues. Rishi Smith MD
--- NOTE | 2017-01-16 01:11 | PN ---
PULMONARY PROGRESS NOTE DATE: 01/15/2017 REFERRING PHYSICIAN: Dr. Castro. SUBJECTIVE: The patient is lying in the bed. No headache. No rhinitis. Breathing is better. No chest pain. No nausea, no vomiting, no diarrhea. No leg pain or leg swelling. PHYSICAL EXAMINATION: GENERAL: In no acute distress. VITAL SIGNS: Temperature is 98, heart rate is 87, respiratory rate is 20, blood pressure 143/79, pulse ox 96% on nasal cannula. HEENT: Moist mucous membrane. No carotid bruit. NECK: Supple. No JVD. LUNGS: Fair air flow with few rhonchi. HEART: S1 and S2. ABDOMEN: Soft, nontender. No organomegaly. EXTREMITIES: No edema. NEUROLOGIC: Awake and alert. Follow simple commands. MEDICATIONS: He is on hydralazine 50 mg IV q.12h. also 10 mg hydralazine p.o. q.i.d. p.r.n., Brovana 15 mcg inhaled twice a day, Cardizem 30 mg three times a day, Cardizem CD 120 mg daily, Cipro is 500 mg, DuoNeb q.6h., Flomax 0.4 mg twice a day, insulin coverage, Protonix 40 mg daily, Pulmicort inhaled twice a day, Singulair 10 mg daily, IV fluid normal saline 75 mL per hour, and Tylenol p.r.n. basis. LABORATORY DATA: Shows hemoglobin 11.1, hematocrit 34.5, WBC 6.3, platelet count is 80. Sodium 143, potassium 4.3, chloride 116, bicarbonate 18, BUN 30, creatinine 1.8, glucose 114, calcium is 8.2, phosphorus 2.3, magnesium 1.9. ProBNP 1330. Microbiology: Repeat blood culture, there is no growth. Chest x-ray done today, which shows no active pulmonary disease and had a CT of the abdomen and pelvis done today, which shows distal right ureteral 4 mm obstructive calculus with mild right hydronephrosis. IMPRESSION AND PLAN: Renal stone with bacteremia, hydronephrosis, chronic obstructive lung disease, diabetes, hypertension, paroxysmal atrial fibrillation, hypertension, and pulmonary embolism. Case discussed with the nursing staff. Continue antibiotics. The patient will see urology for stool. The patient will have cystoscopy tomorrow. Sleep apnea precautions, sedated, close cardiopulmonary monitoring. Follow up labs in the morning. Start physical therapy, out of bed to chair. We will follow up with you. Marva Michelle MD
[2017-01-16] MEDS: Albuterol-Ipratrop 3 mg / 0.5 (3 ml) UD IH SCH ×3 (01:30→13:11)
[2017-01-16] MEDS ORDERED: Pantoprazole 40 mg EC Tab PO SCH (06:00)
[2017-01-16] MEDS: Budesonide 0.5 mg/2 ml Inhal Susp UD IH SCH (08:27)
[2017-01-16] MEDS: Arformoterol 15 mcg/2 ml Inh Sol IH SCH (08:27)
[2017-01-16] MEDS: Insulin Reg-MEDIUM-Coverage SC SCH ×2 (08:42→11:58)
[2017-01-16] MEDS ORDERED: diltiaZEM 120 mg/24 Hours CD Cap PO SCH (10:00)
--- NOTE | 2017-01-16 13:46 | PN ---
DATE: 01/15/2017 The patient is an 86-year-old male. SUBJECTIVE: The patient is seen and examined at the bedside, 01/16/2017. A couple of times discussion done with a nurse practitioner, Miri, and Miri spoke to Dr. Smith and the patient's [id number], Ray, power of cigarette and filter chief inspector to make decision about the procedure. For procedure, the patient is not DNR and DNI but reversed by the family. The patient is comfortable, not in any distress, no fever. No nausea or vomiting. No shortness of breath but still complaining about pain in the lower abdomen. PHYSICAL EXAMINATION: VITAL SIGNS: Temperature 98.2, pulse 72, respiratory rate 22, blood pressure 142/82, and pulse oximetry is 98%. HEENT: Head is normocephalic and atraumatic. Eyes; PERRLA. Extraocular muscles intact. Conjunctivae clear. Nose is patent. Mucous membranes moist. NECK: Supple. No carotid bruit. No JVD. No thyromegaly. CHEST: Bilaterally symmetrical. HEART: S1 and S2 positive. LUNGS: Clear to auscultation. ABDOMEN: Soft. Bowel sounds present. No organomegaly. EXTREMITIES: No edema. No cyanosis. NEUROLOGIC: The patient is awake and alert. Moving all 4 extremities. No focal deficit, but judging attacks of confusion. MEDICATIONS: Brovana, Pulmicort, Cipro, Cardizem, hydralazine, NS, insulin, Singulair, Protonix. LABORATORY DATA: White blood cell 6.3, hemoglobin 11.1, hematocrit 34.5, platelet 80. ASSESSMENT AND PLAN: The patient is an 86-year-old male with anemia, thrombocytopenia, came with severe sepsis with acute renal failure and acute encephalopathy due to Proteus bacteremia probably from urine, history of right lower extremity cellulitis, diabetes mellitus, psoriasis, hypertension, emphysema and dementia, hydronephrosis, nephrolithiasis. The patient is on ciprofloxacin, want to be completed 10 days course as per infectious disease appreciated. Urologist, Dr. Smith, is on the case. The patient has obstructing right ureteral stone, it is [address] scan. Low white blood cell may be related to the medications or sepsis. The patient was started on Flomax. Dr. Smith put the patient on IV fluid, but the patient's BNP is increasing. The patient's history of congestive heart failure is congested, we stopped the IV fluid, and Dr. Smith is planning to repeat CT scan on Thursday, and if stone is still there, we will do ureteroscopy with a laser lithotripsy and removal of the stone. If the patient condition will worsen, he is planning to do percutaneous nephrostomy tube and may be he may put stent. Continue physical therapy. Nurse practitioner, Miri, spoke to the patient's power of cigarette and filter chief inspector, Ray, couple of times and back and forth with me also. We will continue final treatment. We will repeat labs and we will follow up. Mehreen Castro MD
--- NOTE | 2017-01-16 14:32 | PN ---
DATE: 01/16/2017 LOCATION: The patient is in room 567, bed 2. REASON FOR CONSULTATION: Followup tachycardia, hypertension, and abdominal pain. SUBJECTIVE: The patient still complaints of abdominal pain. Denies any chest pain, shortness of breath, or palpitations. PHYSICAL EXAMINATION: GENERAL: The patient is lying flat in bed without any respiratory distress. VITAL SIGNS: Blood pressure 130/82, respirations 20, pulse 80, and temperature 97.4. HEENT: Head is normocephalic. Eyes; pupils normal. Conjunctivae slightly pale. NECK: JVP low. Carotid equal. Thorax; AP diameter normal. LUNGS: Clear. CARDIOVASCULAR: S1 and S2. ABDOMEN: Soft. No tenderness. No organomegaly. Bowel sounds normal. EXTREMITIES: No clubbing. No cyanosis. LABORATORY DATA: WBC 6.3, hemoglobin 11.1, hematocrit 34.5, and platelets 80. Random sugar 154. Other labs done on 01/15/2017 and they were reported in our previous progress note. DIAGNOSES: Abdominal pain. Anemia, low platelet count. CAT scan of abdomen had right ureter 4 mm obstructing calculus with hydronephrosis. High blood pressure initially under tachycardia, probably were respond to the pain. Echo done on this admission showed normal left ventricular size with ejection fraction 55% to 60%. Right ventricular systolic pressure 34 mmHg. PLAN: The patient is on Cardizem CD 120 p.o. daily, Cipro 500 mg p.o. q.12 hours, DuoNeb handheld therapy, Protonix 40 daily, and Singulair 10 mg at bedtime. Clinically, cardiac status stable and we will continue present therapy and we will follow. Marva Cates MD
[2017-01-16] MEDS ORDERED: Propofol 10 mg/ml Inj (20 ML) ONE (15:52)
[2017-01-16] MEDS ORDERED: Lactated Ringer's 1,000 ML IV SCH (16:36)
[2017-01-16 16:49] VITALS: TEMP 97.4
--- NOTE | 2017-01-16 17:41 | CP.PCM.PN ---
Subjective - Date & Time of Evaluation Date of Evaluation: 01/16/17 Time of Evaluation: 10:20 - Subjective Subjective: Comfortable, not in distress, no fevers overnight. Objective - Vital Signs/Intake and Output Vital Signs (last 24 hours): Temp Pulse Resp BP Pulse Ox 97.4 F L 87 16 147/76 99 01/16/17 16:20 01/16/17 16:50 01/16/17 16:50 01/16/17 16:50 01/16/17 16:50 Intake and Output: 01/16/17 01/16/17 06:59 18:59 Intake Total 660 0 Balance 660 0 - Medications Medications: Current Medications Acetaminophen (Tylenol 325mg Tab) 650 mg PO Q4 PRN PRN Reason: Fever >100.4 F Last Admin: 01/16/17 08:44 Dose: 650 mg Albuterol/Ipratropium (Duoneb 3 Mg/0.5 Mg (3 Ml) Ud) 3 ml IH [id number] [facility] Last Admin: 01/16/17 13:11 Dose: 3 ml Arformoterol Tartrate (Brovana) 15 mcg IH [id number] [facility] Last Admin: 01/16/17 08:27 Dose: 15 mcg Budesonide (Pulmicort Respules) 0.5 mg IH [id number] [facility] Last Admin: 01/16/17 08:27 Dose: 0.5 mg Diltiazem HCl (Cardizem Cd) 120 mg PO DAILY [facility] Last Admin: 01/16/17 09:57 Dose: 120 mg Hydralazine HCl (Apresoline) 50 mg IVP Q12 [facility] Last Admin: 01/13/17 09:36 Dose: Not Given Hydralazine HCl (Apresoline) 10 mg PO QID PRN PRN Reason: FOR SBP>170 and diastolic>100 Lactated Ringer's (Lactated Ringer's) 1,000 mls @ 50 mls/hr IV .Q20H [facility] Stop: 01/16/17 18:37 Cefazolin Sodium (Ancef 1gm In Ns) 1 gm in 100 mls @ 100 mls/hr IVPB Q8 JARROD PRN Reason: Protocol Insulin Human Regular (Humulin R Med) 0 units SC ACHS JARROD PRN Reason: Protocol Last Admin: 01/16/17 11:58 Dose: 1 units Montelukast Sodium (Singulair) 10 mg PO HS [facility] Last Admin: 01/15/17 21:32 Dose: 10 mg Pantoprazole Sodium (Protonix Ec Tab) 40 mg PO 0600 JARROD Phenazopyridine HCl (Pyridium) 200 mg PO TID JARROD Tamsulosin HCl (Flomax) 0.4 mg PO BID [facility] Last Admin: 01/16/17 09:55 Dose: 0.4 mg - Labs Labs: 01/15/17 06:45 01/15/17 06:45 PT 13.1 Seconds (9.9-11.8) H 01/10/17 10:45 INR 1.21 (0.93-1.08) H 01/10/17 10:45 APTT 35.7 Seconds (23.7-30.8) H 01/10/17 10:45 - Constitutional Appears: Non-toxic, No Acute Distress - Head Exam Head Exam: NORMAL INSPECTION - ENT Exam ENT Exam: Mucous Membranes Moist - Neck Exam Neck Exam: absent: Lymphadenopathy, Meningismus - Respiratory Exam Respiratory Exam: Decreased Breath Sounds - Cardiovascular Exam Cardiovascular Exam: +S1, +S2 - GI/Abdominal Exam GI & Abdominal Exam: Soft. absent: Tenderness Assessment and Plan - Assessment and Plan (Free Text) Plan: Assessment Severe sepsis with acute renal failure and acute encephalopathy due to proteus bacteremia, probably from UTI, clinically improving history of right lower extremity cellulitis DM Psoriasis HTN emphysema dementia Plan continue cefazolin to complete another 5-6 days; can be switched to PO Ciprofloxacin 500 mg BID to complete therapy will continue to monitor clinically while the patient is in the hospital
--- NOTE | 2017-01-16 18:01 | PN ---
SUBJECTIVE: The patient underwent placement of a right pigtail stent for an obstructing distal urethral calculus. He is much more comfortable, afebrile and can be discharged in the a.m. and we will call the office for followup for ureteroscopy and laser in approximately 10 to 14 days. I called his [id number]-sry who is power of civil litigation attorney and spoke with her and told her of the plan. Evin Gonsales MD
--- NOTE | 2017-01-16 21:52 | PN ---
DATE: 01/16/2017 REFERRING PHYSICIAN: Dr. Castro. SUBJECTIVE: He is lying in the bed and was seen by urology, did not eat anything. Complaining of abdominal pain, lower abdomen. Had a bowel movement yesterday. No leg pain or leg swelling. No cough or shortness of breath. OBJECTIVE: VITAL SIGNS: Temperature 98, heart rate 82, respiratory rate is 16, blood pressure 151/68, pulse ox 95% on nasal cannula. HEENT: Moist mucous membrane. Crowded airway. NECK: Supple. No JVD. LUNGS: Fair air flow with few rhonchi. HEART: S1 and S2. ABDOMEN: Positive bowel sound. Soft, lower abdomen is tender to touch. EXTREMITIES: There is no edema. NEUROLOGIC: Awake and alert. Follow simple commands. MEDICATIONS: He is on Ancef 1 g IV q.8 is being given, hydralazine 10 mg q.i.d. p.r.n. for systolic blood pressure more than 170, Brovana 15 mcg inhaled twice a day, diltiazem 120 mg daily, DuoNeb q.6 hours, Flomax 0.4 mg twice a day, insulin coverage, lactated Ringer solution 50 mL per hour being started, Protonix 40 mg daily, Pulmicort inhaled twice a day, Pyridium 200 mg three times a day, Singulair 10 mg daily, Tylenol p.r.n. basis. LABORATORY DATA: Reviewed, noticed blood sugar this morning 154, proBNP 1330. Microbiology; blood culture has Proteus mirabilis, but repeat blood culture is negative. IMPRESSION AND PLAN: Renal stone with bacteremia, hydronephrosis, started having the pain of the lower abdomen, chronic obstructive lung disease, diabetes, hypertension, paroxysmal atrial fibrillation, and pulmonary embolism. Case discussed in detail with the nursing staff and also spoke to Dr. Gonsales from urology in detail. Looking at the patient's symptoms, recent bacteremia, the patient need cystoscopy and possible stent placement. Pulmonary point of view, his pulmonary function is optimized, being followed by cardiology. Keep head at 45 degrees, sleep apnea precaution, he is sedated. Keep close cardiopulmonary monitoring while sedated. Thank you and we will follow with you. Marva Michelle MD
[2017-01-16] MEDS: ceFAZolin 1 gm in NS 1 GM/100 ML BAG IVPB SCH (22:16)
--- NOTE | 2017-01-17 02:11 | OP ---
PROCEDURE DATE: 01/16/2017 PREOPERATIVE DIAGNOSES: Obstructing distal right ureteral calculus, history of urosepsis, and hydronephrosis. POSTOPERATIVE DIAGNOSES: Obstructing distal right ureteral calculus, history of urosepsis, and hydronephrosis. PROCEDURE PERFORMED: Cystoscopy and insertion of right pigtail stent. SURGEON: Evin Gonsales MD TYPE OF ANESTHESIA: LMA. DESCRIPTION OF PROCEDURE: After adequate LMA general anesthesia was given the patient was placed lithotomy, prepped and draped in the usual manner. A 22-Chinese cystourethroscope was introduced under direction vision. Anterior urethra was normal. The prostatic urethra showed mild BPH. Bladder showed no tumors, foreign bodies, or stones. Orifices with normal in appearance and location. There was efflux from the left and I could not appreciate efflux from the right. Urine was obtained for C&S upon initial introduction of the cystoscope. A 0.035 sensor wire was advanced up to the right ureter under fluoroscopic guidance. Over this a 6-Chinese 26 cm pigtail stent was passed over the wire and properly placed. The wire was removed. The stent coiled nicely in the right renal pelvis within the bladder. The bladder was drained. The cystoscope was removed. The patient was awakened and brought to the recovery room in good condition. Evin Gonsales MD
--- NOTE | 2017-01-17 03:06 | PN ---
The patient is an 86-year-old male. SUBJECTIVE: The patient is seen and examined at the bedside late evening while having dinner. No nausea, vomiting, or diarrhea. No hematuria or hematochezia. No swelling of the leg. No chest pain. No palpitation. No headache. No dizziness. PHYSICAL EXAMINATION VITAL SIGNS: Temperature is 97.4, pulse 82, blood pressure 150/68, respiratory rate 16. HEENT: Head is normocephalic and atraumatic. Eyes; PERRLA. Extraocular muscles intact. Conjunctivae clear. Nose is patent. Mucous membranes moist. NECK: Supple. No carotid bruit. No JVD. No thyromegaly. CHEST: Bilaterally symmetrical. HEART: S1 and S2 positive. LUNGS: Clear to auscultation.. ABDOMEN: Soft. Bowel sounds present. No organomegaly. EXTREMITIES: No edema. No cyanosis. NEUROLOGIC: The patient is awake. Moving all 4 extremities. No focal deficit, but sometimes getting attacks of confusion. MEDICATIONS: Ancef, hydralazine, Brovana, Cardizem, DuoNeb, Flomax, insulin, Protonix, Pulmicort, Pyridium, Singulair, and Tylenol. LABORATORY DATA: White blood cells 6.3, on admission, it was 38.5. His hemoglobin 11.1, hematocrit 34.5, and platelets 80. Glucose 154. BNP 1330. ASSESSMENT AND PLAN: The patient is an 86 years old male with multiple medical problems, has severe sepsis with acute renal failure, acute encephalopathy due to Proteus bacteremia, it looks like some urinary tract infection clinically improved, history of right lower extremity cellulitis, diabetes mellitus, psoriasis, hypertension, emphysema, dementia, hydronephrosis, and nephrolithiasis. Dr. Gonsales put a ureteral stent today and then we will watch the patient over the weekend and repeat CAT scan. If stone will come out, that is fine; otherwise, the patient needs lithotripsy as per Dr. Gonsales. He had length of time discussion on with the patient's joozzybs-ys-oyr, Ray. She is the power of media developer. We will continue on cefazolin for complete 5 to [address] Cardiology Dr. Cates; Pulmonary is Dr. Michelle. The patient underwent placement of the right pigtail stent for an obstructing distal ureteral calculus. He is now much more comfortable, afebrile. The patient will need ureteroscopy as an outpatient in approximately 10 to [address] Gonsales' input. GI and DVT prophylaxis. Repeat labs. We will follow. Mehreen Castro MD MTDKelechi
[2017-01-17] MEDS: ceFAZolin 1 gm in NS 1 GM/100 ML BAG IVPB SCH (05:45)
[2017-01-17 07:59] VITALS: BP 121/76; PULSE 90; RESP 20; O2SAT 93
--- NOTE | 2017-01-17 10:36 | RAD ---
PROCEDURE: Fluoroscopy up to 1 hr. HISTORY: STENT INSERTION (RIGHT) COMPARISON: None TECHNIQUE: Standard protocol for this study/examination. FINDINGS: Submitted images from the current procedure: 5.0 IMPRESSION: Total fluoroscopic time (continuous mode) utilized during the procedure: 33 seconds.
[2017-01-17] MEDS: Insulin Reg-MEDIUM-Coverage SC SCH (12:16)
[2017-01-17] MEDS: Albuterol-Ipratrop 3 mg / 0.5 (3 ml) UD IH SCH (13:17)
--- NOTE | 2017-01-18 13:16 | CP.PCM.DIS ---
Provider - Provider Date of Admission: 01/10/17 15:04 Attending physician: Mehreen Castro MD Primary care physician: Mehreen Castro MD Time Spent in preparation of Discharge (in minutes): 60 Hospital Course - Lab Results Lab Results: Micro Results 01/13/17 14:05 Blood-Venous Blood Culture - Preliminary NO GROWTH AFTER 4 DAYS 01/13/17 13:27 Blood-Venous Blood Culture - Preliminary NO GROWTH AFTER 4 DAYS 01/10/17 18:00 Naris MRSA Culture (Admit) - Final MRSA NOT DETECTED 01/10/17 18:00 Stool C. difficile Antigen & Toxin A,B (M - Final Most Recent Lab Values WBC 6.3 10^3/ul (4.5-11.0) 01/15/17 06:45 RBC 3.85 10^6/uL (3.5-6.1) 01/15/17 06:45 Hgb 11.1 g/dL (14.0-18.0) L 01/15/17 06:45 Hct 34.5 % (42.0-52.0) L 01/15/17 06:45 MCV 89.6 fl (80.0-105.0) 01/15/17 06:45 MCH 28.8 pg (25.0-35.0) 01/15/17 06:45 MCHC 32.2 g/dl (31.0-37.0) 01/15/17 06:45 RDW 14.8 % (11.5-14.5) H 01/15/17 06:45 Plt Count 80 10^3/uL (120.0-450.0) L 01/15/17 06:45 MPV 11.7 fl (7.0-11.0) H 01/15/17 06:45 Gran % 78.5 % (50.0-68.0) H 01/15/17 06:45 Lymph % (Auto) 9.3 % (22.0-35.0) L 01/15/17 06:45 [place] % (Auto) 6.7 % (1.0-6.0) H 01/15/17 06:45 Eos % (Auto) 5.3 % (1.5-5.0) H 01/15/17 06:45 Baso % (Auto) 0.2 % (0.0-3.0) 01/15/17 06:45 Gran # 4.92 (1.4-6.5) 01/15/17 06:45 Lymph # 0.6 (1.2-3.4) L 01/15/17 06:45 [place] # 0.4 (0.1-0.6) 01/15/17 06:45 Eos # 0.3 (0.0-0.7) 01/15/17 06:45 Baso # 0.01 K/mm3 (0.0-2.0) 01/15/17 06:45 Neutrophils % (Manual) 92 % (50.0-70.0) H 01/12/17 08:34 Band Neutrophils % 4 % (0-2) H 01/12/17 08:34 Lymphocytes % (Manual) 3 % (22.0-35.0) L 01/12/17 08:34 Monocytes % (Manual) TEST NOT PERFORMED 01/12/17 08:34 Basophils % (Manual) 1 % (0.0-1.0) 01/12/17 08:34 Metamyelocytes % 2 % 01/11/17 05:15 Platelet Evaluation Low (NORMAL) 01/12/17 08:34 Giant Platelets Present 01/11/17 05:15 PT 13.1 Seconds (9.9-11.8) H 01/10/17 10:45 INR 1.21 (0.93-1.08) H 01/10/17 10:45 APTT 35.7 Seconds (23.7-30.8) H 01/10/17 10:45 pO2 149 mm/Hg (30-55) H 01/10/17 13:53 VBG pH 7.20 (7.32-7.43) L 01/10/17 13:53 VBG pCO2 29.0 (40-60) L 01/10/17 13:53 VBG HCO3 11.3 mmol/l (21-28) L 01/10/17 13:53 VBG Total CO2 12.2 mmol.L (22-28) L 01/10/17 13:53 VBG O2 Sat (Calc) 100.6 % (40-65) H 01/10/17 13:53 VBG Base Excess -15.3 mmol/L (0.0-2.0) L 01/10/17 13:53 VBG Potassium 4.0 mmol/L (3.6-5.2) 01/10/17 13:53 Sodium 156.0 mmol/L (132-148) H 01/10/17 13:53 Chloride 110.0 mmol/L (98-107) H 01/10/17 13:53 Glucose 239 mg/dl (75-110) H 01/10/17 13:53 Lactate 4.1 mmol/L (0.7-2.1) H* 01/10/17 13:53 FiO2 21.0 % 01/10/17 13:53 Sodium 143 mmol/L (132-148) 01/15/17 06:45 Potassium 4.3 mmol/L (3.6-5.0) 01/15/17 06:45 Chloride 116 mmol/L (95-110) H 01/15/17 06:45 Carbon Dioxide 18 mmol/L (21-33) L 01/15/17 06:45 Anion Gap 13 (10-20) 01/15/17 06:45 BUN 30 mg/dL (7-21) H 01/15/17 06:45 Creatinine 1.8 mg/dL (0.5-1.4) H 01/15/17 06:45 Est GFR ( Amer) 44 01/15/17 06:45 Est GFR (Non-Af Amer) 36 01/15/17 06:45 POC Glucose (mg/dL) 135 mg/dL (65-110) H 01/17/17 11:36 Random Glucose 114 mg/dL (70-110) H 01/15/17 06:45 Hemoglobin A1c 6.4 % (4.2-6.5) 01/14/17 05:30 Lactic Acid 1.6 mmol/L (0.7-2.1) 01/11/17 05:15 Calcium 8.2 mg/dL (8.4-10.5) L 01/15/17 06:45 Phosphorus 2.3 mg/dL (2.5-4.5) L 01/15/17 06:45 Magnesium 1.9 mg/dL (1.7-2.2) 01/15/17 06:45 Total Bilirubin 0.5 mg/dL (0.2-1.3) 01/14/17 05:30 AST 48 U/L (15-59) 01/14/17 05:30 ALT 27 U/L (7-56) 01/14/17 05:30 Alkaline Phosphatase 65 U/L (38-133) 01/14/17 05:30 Troponin I < 0.01 ng/mL D 01/13/17 04:05 NT-Pro-B Natriuret Pep 1330 pg/mL (0-450) H 01/15/17 16:40 Total Protein 4.9 g/dL (5.8-8.3) L 01/14/17 05:30 Albumin 2.4 g/dL (3.0-4.8) L 01/14/17 05:30 Globulin 2.6 gm/dL 01/14/17 05:30 Albumin/Globulin Ratio 0.9 (1.1-1.8) L 01/14/17 05:30 Triglycerides 84 mg/dL (35-160) 01/14/17 05:30 Cholesterol 97 mg/dL (130-200) L 01/14/17 05:30 LDL Cholesterol Direct 43 mg/dL (0-129) 01/14/17 05:30 HDL Cholesterol 37 mg/dL (29-60) 01/14/17 05:30 Prostate Specific Ag 0.9 ng/mL (0.00-2.5) 01/11/17 12:20 Procalcitonin 35.28 NG/ML (0.19-0.49) H 01/13/17 04:05 TSH 3rd Generation 2.49 mIU/mL (0.46-4.68) 01/14/17 05:30 Venous Blood Potassium 4.0 mmol/L (3.6-5.2) 01/10/17 13:53 Urine Color Yellow (YELLOW) 01/10/17 11:00 Urine Appearance Cloudy (CLEAR) 01/10/17 11:00 Urine pH 8.0 (4.7-8.0) 01/10/17 11:00 Ur Specific [place] 1.020 (1.005-1.035) 01/10/17 11:00 Urine Protein 100 mg/dL (<30 mg/dL) H 01/10/17 11:00 Urine Glucose (UA) Negative mg/dL (NEGATIVE) 01/10/17 11:00 Urine Ketones Negative mg/dL (NEGATIVE) 01/10/17 11:00 Urine Blood Large (NEGATIVE) H 01/10/17 11:00 Urine Nitrate Negative (NEGATIVE) 01/10/17 11:00 Urine Bilirubin Negative (NEGATIVE) 01/10/17 11:00 Urine Urobilinogen 0.2 E.U./dL (<1 E.U./dL) 01/10/17 11:00 Ur Leukocyte Esterase Large Rayray/uL (NEGATIVE) H 01/10/17 11:00 Urine RBC 0 - 2 /hpf (0-2) 01/10/17 11:00 Urine WBC 1 - 3 /hpf (0-6) 01/10/17 11:00 Urine Bacteria Many (NEG) 01/10/17 11:00 - Hospital Course Hospital Course: An 86 year old male whose past medical history includes, diabetes, hypertension , emphysema, and is a intermediate resident, presents to the emergency department brought in via EMS from intermediate for lethargy and fever. As per EMS the patient has a DNR order. Review of systems unavailable due to dementia. Id , urology , consult called pt had Severe sepsis with acute renal failure and acute encephalopathy due to proteus bacteremia, probably from UTI, clinically improved history of right lower extremity cellulitis DM Psoriasis HTN emphysema dementia got cefazolin from ID ; switched to PO Ciprofloxacin 500 mg BID to complete therapy ,got procedure from dr G[place] ,and transfer back to rehab Discharge Exam - Head Exam Head Exam: NORMAL INSPECTION - Eye Exam Eye Exam: EOMI, Normal appearance, PERRL Pupil Exam: NORMAL ACCOMODATION, PERRL - GI/Abdominal Exam GI & Abdominal Exam: Normal Bowel Sounds - Rectal Exam Rectal Exam: NORMAL INSPECTION - Exam Exam: Circumcision, NORMAL INSPECTION External exam: NORMAL EXTERNAL EXAM Speculum exam: NORMAL SPECULUM EXAM Bimanual exam: NORMAL BIMANUAL EXAM - Neurological Exam Neurological exam: Alert, CN II-XII Intact, Normal Gait, Oriented x3, Reflexes Normal - Psychiatric Exam Psychiatric exam: Normal Affect, Normal Mood - Skin Skin Exam: Dry, Intact, Normal Color, Warm Discharge Plan - Follow Up Plan Condition: FAIR Disposition: HOME/ ROUTINE Instructions: Kidney Stones (DC), Urinary Retention in Men (GEN), Ureteroscopy (DC), Urinary Tract Infection in Men (DC), Urethral Stent Placement (DC), Hydronephrosis (DC) Referrals: Gloria,Mehreen, MD [Primary Care Provider] - Marva Michelle MD [Staff Provider] -
--- NOTE | 2017-01-19 11:25 | PQF RESP ---
01/19/17 Dr. Michelle, You signed the previous query, on respiratory failure, but I do not see your answer to the question. Please document whether this patient's respiratory failure is acute, chronic, or both, with hypoxia and /or hypercapnia. Thank you. Clarification of your documentation is requested to better reflect the severity of illness and intensity of treatment of your patient. Indicators present [] Use of Home Oxygen [] Respiratory rate > 28 or <8/min (Labored respirations) [] PCO2 > 50 mm Hg or (Hypercapnia) (somnolence) [] PaO2 < 60 mm Hg or Hypoxemia (confusion) [] ABG blood gas pH < 7.35 [] SpO2 < 90% sat on Room Air [] Cyanosis [] Unable to Speak in Full Sentences [] Use of Accessory Muscles / Tripoding [] Wheezing [] Other: [] Location in the medical record that reflects the above clinical findings: [] Treatment Provided: [] PHYSICIAN'S RESPONSE Based on your medical judgment of the clinical indicators outlined above, are you treating this patient for a known or suspected: [] Acute Respiratory Failure (hypoxia or hypercapnia) [] Chronic Respiratory Failure (hypoxia or hypercapnia) [] Acute on Chronic Respiratory Failure (hypoxia or hypercapnia) [] Hypoxemia please specify ACUTE, CHRONIC or ACUTE on CHRONIC [] Other []_ [] If unable to determine, please check the box, sign and date. Present On Admission (POA) Indicator: [] Present at the time of admission [] Not present at the time of admission [] Clinically Undetermined In responding to this query, please exercise your independent professional judgment. The fact that a question is asked does not imply that any particular answer is desired or expected. Thank you for your clarification on this documentation. 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 In theory, respiratory failure is defined as a Pa02 value of <60 mm/Hg or a PaC02 of >50 mm/Hg. However, these values may be affected by renal compensation. Respiratory failure may be acute or chronic. While acute respiratory failure is characterized by life-threatening derangement in arterial blood gases and acid-base balance, the manifestations of chronic respiratory failure are less dramatic and may not be as readily apparent. Classifications: Respiratory failure may be classified as hypoxemic (usually characterized by Pa02 of <60 mm/Hg) or hypercapnic (usually characterized by PaC02 >50 mm/Hg) and either may be acute or chronic. Chronic hypercapnic respiratory failure develops over time and allows for renal compensation and an increase in bicarbonate concentration; therefore the pH is usually only slightly decreased. The distinction between acute and chronic hypoxemic respiratory failure cannot readily be made on the basis of ABGs; the clinical markers of chronic hypoxemia, such as polythycemia or cor pulmonale suggest a long standing disorder (chronic hypoxemic respiratory failure). Clinical Indicators: dyspnea at rest or "chronic" dyspnea, concomitant conditions such as polycythemia or cor pulmonale, requirement for continuous oxygen support, forced expiratory volume in one second (FEV1) of 49 or less, pursed lip breathing, "barrel" chest, hyperinflation by CXR, muscle wasting, malnutrition/obesity, poor exercise capacity, peripheral edema, description as a "blue bloater" (usually associated with chronic, obstructive bronchitis) or "pink puffer" (usually associated with emphysema) Risks: Chronic Hypoxemic Respiratory Failure - COPD, pulmonary fibrosis, asthma , pulmonary arterial hypertension, granulomatous lung diseases, congenital heart disease, bronchiectasis, kyphoscoliosis, obesity; Chronic Hypercapnic Respiratory Failure - COPD, severe asthma, myasthenia gravis, polyneuropathy, polio, head and cervical spine injuries, obesity hypoventilation syndrome. Treatment: supplemental oxygen, bronchodilators, corticosteroids, adequate nutrition, lung transplant References: Am. J. Respir. Crit. Care Med. "Global Strategy for the Diagnosis, Management and Prevention of COPD: GOLD Exectuive Summary," Niurka Blake Anzueto - 2007; Proceedings of the [employer] Thor[employer] "Mechanisms and Measurements of Dyspnea in COPD," Aicha - 2006; WebMD; Respiratory Failure, Sat MD Cecil - 12/2005; Evan's Principles of Internal Medicine, 17th edition. Acute Respiratory Failure Acute Respiratory Failure indicators include: ~Respirations >28 ~Air hunger ~Use of accessory muscles of respiration ~Inability to speak in full sentences Cyanosis ~Pulse ox <90% RA or <95% on O2 pH <7.35 or >7.45 ~pO2 < 60 mm Hg (or 10mm below COPD patient's baseline) ~pCO2 >50mm Hg (or 10mm above COPD patient's baseline) "Respiratory failure may be assigned as a principal diagnosis when it is the condition established after study to be chiefly responsible for occasioning admission to the hospital. The fact that the respiratory failure was managed without intubation and mechanical ventilation does not preclude its use." [facility], 3rd Qtr., 1988, p. 7 MTDD
--- NOTE | 2017-01-20 08:52 | PQF RESP ---
01/20/17 Dr. Michelle, I do not see an answer on the 2 previous query forms posted for the type and severity of this patient's respiratory failure. You signed the documents only. Please indicate whether this patient's respiratory failure is acute, chronic, both, and/or with hypercapnia/hypoxia. If this is unknown, please state this. Thank you. Clarification of your documentation is requested to better reflect the severity of illness and intensity of treatment of your patient. Indicators present [] Use of Home Oxygen [] Respiratory rate > 28 or <8/min (Labored respirations) [] PCO2 > 50 mm Hg or (Hypercapnia) (somnolence) [] PaO2 < 60 mm Hg or Hypoxemia (confusion) [] ABG blood gas pH < 7.35 [] SpO2 < 90% sat on Room Air [] Cyanosis [] Unable to Speak in Full Sentences [] Use of Accessory Muscles / Tripoding [] Wheezing [] Other: [] Location in the medical record that reflects the above clinical findings: [] Treatment Provided: [] PHYSICIAN'S RESPONSE Based on your medical judgment of the clinical indicators outlined above, are you treating this patient for a known or suspected: [] Acute Respiratory Failure (hypoxia or hypercapnia) [] Chronic Respiratory Failure (hypoxia or hypercapnia) [] Acute on Chronic Respiratory Failure (hypoxia or hypercapnia) [] Hypoxemia please specify ACUTE, CHRONIC or ACUTE on CHRONIC [] Other []_ [] If unable to determine, please check the box, sign and date. Present On Admission (POA) Indicator: [] Present at the time of admission [] Not present at the time of admission [] Clinically Undetermined In responding to this query, please exercise your independent professional judgment. The fact that a question is asked does not imply that any particular answer is desired or expected. Thank you for your clarification on this documentation. 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 In theory, respiratory failure is defined as a Pa02 value of <60 mm/Hg or a PaC02 of >50 mm/Hg. However, these values may be affected by renal compensation. Respiratory failure may be acute or chronic. While acute respiratory failure is characterized by life-threatening derangement in arterial blood gases and acid-base balance, the manifestations of chronic respiratory failure are less dramatic and may not be as readily apparent. Classifications: Respiratory failure may be classified as hypoxemic (usually characterized by Pa02 of <60 mm/Hg) or hypercapnic (usually characterized by PaC02 >50 mm/Hg) and either may be acute or chronic. Chronic hypercapnic respiratory failure develops over time and allows for renal compensation and an increase in bicarbonate concentration; therefore the pH is usually only slightly decreased. The distinction between acute and chronic hypoxemic respiratory failure cannot readily be made on the basis of ABGs; the clinical markers of chronic hypoxemia, such as polythycemia or cor pulmonale suggest a long standing disorder (chronic hypoxemic respiratory failure). Clinical Indicators: dyspnea at rest or "chronic" dyspnea, concomitant conditions such as polycythemia or cor pulmonale, requirement for continuous oxygen support, forced expiratory volume in one second (FEV1) of 49 or less, pursed lip breathing, "barrel" chest, hyperinflation by CXR, muscle wasting, malnutrition/obesity, poor exercise capacity, peripheral edema, description as a "blue bloater" (usually associated with chronic, obstructive bronchitis) or "pink puffer" (usually associated with emphysema) Risks: Chronic Hypoxemic Respiratory Failure - COPD, pulmonary fibrosis, asthma , pulmonary arterial hypertension, granulomatous lung diseases, congenital heart disease, bronchiectasis, kyphoscoliosis, obesity; Chronic Hypercapnic Respiratory Failure - COPD, severe asthma, myasthenia gravis, polyneuropathy, polio, head and cervical spine injuries, obesity hypoventilation syndrome. Treatment: supplemental oxygen, bronchodilators, corticosteroids, adequate nutrition, lung transplant References: Am. J. Respir. Crit. Care Med. "Global Strategy for the Diagnosis, Management and Prevention of COPD: GOLD Exectuive Summary," Niurka Blake Anzueto - 2007; Proceedings of the [employer] Thor[employer] Society "Mechanisms and Measurements of Dyspnea in COPD," Aicha - 2006; WebMD; Respiratory Failure, Young Jacob MD - 12/2005; Evan's Principles of Internal Medicine, 17th edition. Acute Respiratory Failure Acute Respiratory Failure indicators include: ~Respirations >28 ~Air hunger ~Use of accessory muscles of respiration ~Inability to speak in full sentences Cyanosis ~Pulse ox <90% RA or <95% on O2 pH <7.35 or >7.45 ~pO2 < 60 mm Hg (or 10mm below COPD patient's baseline) ~pCO2 >50mm Hg (or 10mm above COPD patient's baseline) "Respiratory failure may be assigned as a principal diagnosis when it is the condition established after study to be chiefly responsible for occasioning admission to the hospital. The fact that the respiratory failure was managed without intubation and mechanical ventilation does not preclude its use." [facility], 3rd Qtr., 1988, p. 7 MTDD
== END 2017-01-17 15:50 | DRG 871 ==
LOC: ED 10:27 → ERH 15:04 → CCU 16:39 → 5RNO 01-12 05:21
PROVIDERS: ADMIT Internal Medicine; ATTEND Internal Medicine
PROC: 0T768DZ Dilation of Right Ureter with Intraluminal Device, Via Natural or Artificial Opening Endoscopic (ICD-10-PCS; principal; 2017-01-16 15:00)
DX: A41.89 Other specified sepsis (principal); R65.21 Severe sepsis with septic shock; I26.99 Other pulmonary embolism without acute cor pulmonale; J96.00 Acute respiratory failure, unspecified whether with hypoxia or hypercapnia; G93.40 Encephalopathy, unspecified; N17.9 Acute kidney failure, unspecified; E87.0 Hyperosmolality and hypernatremia; D69.6 Thrombocytopenia, unspecified; E11.65 Type 2 diabetes mellitus with hyperglycemia; I47.1 Supraventricular tachycardia; E86.0 Dehydration; I48.0 Paroxysmal atrial fibrillation; E87.1 Hypo-osmolality and hyponatremia; N13.2 Hydronephrosis with renal and ureteral calculous obstruction; N20.2 Calculus of kidney with calculus of ureter; N39.0 Urinary tract infection, site not specified; I50.9 Heart failure, unspecified; F03.90 Unspecified dementia, unspecified severity, without behavioral disturbance, psychotic disturbance, mood disturbance, and anxiety; I11.0 Hypertensive heart disease with heart failure; B96.4 Proteus (mirabilis) (morganii) as the cause of diseases classified elsewhere; D64.9 Anemia, unspecified; D72.819 Decreased white blood cell count, unspecified; E78.5 Hyperlipidemia, unspecified; E87.6 Hypokalemia; E87.8 Other disorders of electrolyte and fluid balance, not elsewhere classified; F17.200 Nicotine dependence, unspecified, uncomplicated; H54.7 Unspecified visual loss; J44.9 Chronic obstructive pulmonary disease, unspecified; L40.9 Psoriasis, unspecified; N21.1 Calculus in urethra; Z66 Do not resuscitate; Z79.4 Long term (current) use of insulin; Z79.84 Long term (current) use of oral hypoglycemic drugs; Z79.899 Other long term (current) drug therapy; Z87.442 Personal history of urinary calculi; Z91.81 History of falling; R39.15 Urgency of urination; R32 Unspecified urinary incontinence; F10.21 Alcohol dependence, in remission; I08.1 Rheumatic disorders of both mitral and tricuspid valves

== ENCOUNTER 2017-05-18 10:55 | Day surgery (SDC) | payer MEDICARE, MEDICAID ==
[2017-05-12 12:37] VITALS: BMI 26.8
[2017-05-18] MEDS ORDERED: cefTRIAXone 1 gm 1 GM/100 ML BAG IVPB SCH (11:30)
[2017-05-18] MEDS ORDERED: cefTRIAXone (Rocephin) 1 gm Inj ONE ×2 (11:31→12:31)
[2017-05-18] MEDS ORDERED: cefTRIAXone 1 GM in D5W 100 ML BAG IVPB ONE (11:34)
[2017-05-18] MEDS ORDERED: Iohexol 240 (50 ml) ONE (12:31)
[2017-05-18] MEDS ORDERED: Etomidate 20 mg/10ml Inj IV ONE (12:44)
[2017-05-18] MEDS ORDERED: Lidocaine 2% Inj (20ml) ONE (12:46)
[2017-05-18] MEDS ORDERED: Lidocaine 2% Jelly (Uro-Jet) ONE (13:24)
--- NOTE | 2017-05-18 14:45 | RAD ---
PROCEDURE: Fluoroscopy up to 1 hour HISTORY: STENT REMOVAL / RETROGRADE PYELOGRAM (RIGHT) COMPARISON: TECHNIQUE: Fluoroscopy was provided in the operating room. 84 seconds of fluoro time. 13 images were submitted FINDINGS: There is removal of the right ureteral stent. There is passage of a wire and instrument into the right ureter with opacification of the right renal collecting system. There is mild dilatation of the pelvis and blunting of the calices. IMPRESSION: As above
[2017-05-18 14:57] VITALS: BP 156/98; PULSE 59; RESP 20; TEMP 97.7; O2SAT 98
--- NOTE | 2017-05-19 08:29 | OP ---
PROCEDURE DATE: 05/18/2017 PREOPERATIVE DIAGNOSIS: Right ureteral calculus, retained right ureteral stent. POSTOPERATIVE DIAGNOSIS: Right ureteral calculus, retained right ureteral stent. PROCEDURE: Cystoscopy, removal of right ureteral stent, right retrograde pyelogram, right ureteroscopy. SURGEON: Rishi Smith MD ANESTHESIA: General. SPECIMENS: There were none. DRAINS: There were none. COMPLICATIONS: There were none. OPERATIVE FINDINGS: After informed consent was obtained, the patient was taken to the operating room, placed on the operating table. Anesthesia was administered. The patient was then placed in the dorsal lithotomy position, and prepped and draped in usual sterile fashion. A 21-Bermudian cystoscope was placed in the patient's urethra and advanced proximally under direct vision until the bladder was entered. A full survey inspection of bladder was then performed which revealed no papillary tumors. There was a stent noted exiting from the right ureteral orifice. Left ureteral orifice appeared within normal limits. The stent was moderately encrusted at its distal end. On fluoroscopy, no obvious defect was noted alongside the stent. At this point, a sensor wire was obtained. It was able to be passed through the cystoscope and guided up the right ureter alongside the stent. The stent was then grasped, the encrustations were broken off of the distal limb. Using the grasping forceps, the stent was able to be then withdrawn. The upper loop uncoiled easily on fluoroscopy. The stent was able to be withdrawn in its entirety and removed. The cystoscope was then re-passed. The wire remained in position. The bladder was then drained and the cystoscope was removed. A semi-rigid 8-Bermudian ureteroscope was then passed under direct vision into the bladder and guided into the right ureteral orifice. There was moderate bullous inflammation noted along the right orifice. The scope was able to be advanced into the ureter and advanced proximally under direct vision easily until the renal pelvis was reached. There was some moderate ureteritis noted and inflammation from the indwelling stent. There were no discrete calculi noted. At this point, the ureteroscope was withdrawn under direct vision. An open-ended ureteral catheter was then passed and the guidewire was back loaded onto the cystoscope which was passed into the bladder. The ureteral catheter was placed into the ureter and the guidewire was then removed. Contrast was then instilled into the system. There were no discrete filling defects noted. There was evidence of ureteritis and ureteral inflammation. On delayed views, contrast was noted to be exiting from the renal pelvis into the ureter and down the ureter into the bladder. At this point, the procedure was completed, the bladder was drained, and the cystoscope was removed. The patient tolerated the procedure well, was taken to the recovery room awake in stable condition. Rishi Smith MD
== END 2017-05-18 15:50 ==
LOC: SDS 10:55
PROVIDERS: ATTEND Urology
DX: N20.1 Calculus of ureter (principal); I10 Essential (primary) hypertension; E11.9 Type 2 diabetes mellitus without complications; Z79.4 Long term (current) use of insulin
CPT/HCPCS: 52332; J0696 ×2; J2405; J3010; J7120; Q9966